=== PATIENT | female | born 1950 | race Caucasian/White ===

== ENCOUNTER → 2017-09-03 | Outpatient (CLI) | payer MEDICARE ==
--- NOTE | 2017-09-03 15:44 | RADIOLOGY REPORT (SQ) ---
EXAM DESCRIPTION: CHEST PA/LATERAL COMPLETED DATE/TIME: 09/03/2017 3:36 pm REASON FOR STUDY: DYSPNEA, UNSPECIFIED COMPARISON: 03/31/2016 EXAM PARAMETERS: NUMBER OF VIEWS: two views TECHNIQUE: Digital Frontal and Lateral radiographic views of the chest acquired. RADIATION DOSE: NA LIMITATIONS: none FINDINGS: LUNGS AND PLEURA: No opacities, masses or pneumothorax. No pleural effusion. MEDIASTINUM AND HILAR STRUCTURES: No masses or contour abnormalities. HEART AND VASCULAR STRUCTURES: Heart normal size. No evidence for failure. BONES: No acute findings. HARDWARE: None in the chest. OTHER: No other significant finding. IMPRESSION: NO SIGNIFICANT RADIOGRAPHIC FINDING IN THE CHEST. TECHNICAL DOCUMENTATION: JOB ID: [id number] [employer]- All Rights Reserved
== END ==
LOC: OD 15:22
PROVIDERS: ATTEND Physician Assistant
DX: R06.00 Dyspnea, unspecified (principal)
CPT/HCPCS: 71020

== ENCOUNTER 2018-10-23 13:34 | Emergency (ER) | payer MEDICAID, MEDICARE ==
--- NOTE | 2018-10-23 14:59 | ER Document Report ---
ED Medical Screen (RME) - General Chief Complaint: Leg Swelling Stated Complaint: LEG PAIN Time Seen by Provider: 10/23/18 14:57 Mode of Arrival: Wheelchair Information source: Patient Notes: This is a 68-year-old female that was referred to the emergency room for bilateral lower extremity Dopplers. Patient complains of increased swelling and pain in both lower extremities. She seems to have more pain on the left. She notes increased difficulty ambulating over the past several days. She denies any back pain. She denies any chest pain or abdominal pain. She denies any recent illnesses. TRAVEL OUTSIDE OF THE [place] IN LAST 30 DAYS: No - Related Data Allergies/Adverse Reactions: decongestants Allergy (Uncoded 10/23/18 13:49) steroids Allergy (Uncoded 10/23/18 13:49) DECONGESTANTS Adverse Reaction (Uncoded 10/23/18 13:49) INCREASES BP STEROIDS Adverse Reaction (Uncoded 10/23/18 13:49) INDUCES FEVER Past Medical History - Social History Frequency of alcohol use: None Drug Abuse: None - Past Medical History Cardiac Medical History: Reports: Hx Hypercholesterolemia, Hx Hypertension Denies: Hx Coronary Artery Disease, Hx Heart Attack Pulmonary Medical History: Reports: Hx Bronchitis Denies: Hx Asthma, Hx COPD, Hx Pneumonia Neurological Medical History: Reports: Hx Cerebrovascular Accident. 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 Denies: Hx Hepatitis, Hx Hiatal Hernia, Hx Ulcer Musculoskeltal Medical History: Reports Hx Arthritis - Legs, hips, hands Psychiatric Medical History: Reports: Hx Anxiety, Hx Dementia, Hx Depression, Hx Obsessive Compulsive Disorder Infectious Medical History: Denies: Hx Hepatitis Past Surgical History: Reports: Hx Dilation and Curettage - x2, Hx Gynecologic Surgery - D&C x2, Hx Orthopedic Surgery - 2x left foot, Hx Tonsillectomy. Denies: Hx Hysterectomy, Hx Mastectomy, Hx Open Heart Surgery, Hx Pacemaker - Immunizations Hx Diphtheria, Pertussis, Tetanus Vaccination: Yes Physical Exam - Vital signs Vitals: Temp Pulse Resp BP Pulse Ox 98.3 F 73 20 186/78 H 100 10/23/18 14:08 10/23/18 14:08 10/23/18 14:08 10/23/18 14:08 10/23/18 14:08 Course - Vital Signs Vital signs: Temp Pulse Resp BP Pulse Ox 98.3 F 73 20 186/78 H 100 10/23/18 14:08 10/23/18 14:08 10/23/18 14:08 10/23/18 14:08 10/23/18 14:08 Doctor's Discharge - Discharge Referrals: MO ROBERTS PA-C [Primary Care Provider] - Follow up as needed
[2018-10-23 15:34] LABS: ABSOLUTE LYMPHOCYTES (AUTO) 1.4 10^3/uL (0.5-4.7); ABSOLUTE MONOCYTES (AUTO) 0.6 10^3/uL (0.1-1.4); BASOPHILS % (AUTO) 0.4 % (0-2); EOSINOPHILS % (AUTO) 0.5 % (0-6); HEMATOCRIT 35.7 % (36.0-47.0); HEMOGLOBIN 12.2 g/dL (12.0-15.5); LYMPHOCYTES % (AUTO) 15.1 % (13-45); MEAN CORPUSCULAR HEMOGLOBIN 30.5 pg (27.0-33.4); MEAN CORPUSCULAR HGB CONC 34.1 g/dL (32.0-36.0); MEAN CORPUSCULAR VOLUME 89 fl (80-97); MONOCYTES % (AUTO) 6.1 % (3-13); PLATELET COUNT 222 10^3/uL (150-450); RED CELL DISTRIBUTION WIDTH 14.3 % (11.5-14.0); SEGMENTED NEUTROPHILS % (AUTO) 77.9 % (42-78); TOTAL CELLS COUNTED % (AUTO) 100 %
[2018-10-23 15:49] LABS: ALANINE AMINOTRANSFERASE 25 U/L (9-52); ALBUMIN 4.8 g/dL (3.5-5.0); ALKALINE PHOSPHATASE 161 U/L (38-126); ANION GAP 12 (5-19); ASPARTATE AMINO TRANSFERASE 19 U/L (14-36); BILIRUBIN,DIRECT 0.1 mg/dL (0.0-0.4); BILIRUBIN,TOTAL 0.5 mg/dL (0.2-1.3); BLOOD UREA NITROGEN 9 mg/dL (7-20); CALCIUM 9.3 mg/dL (8.4-10.2); CARBON DIOXIDE 31 mmol/L (22-30); CHLORIDE 89 mmol/L (98-107); GLUCOSE 144 mg/dL (75-110); SODIUM 132.1 mmol/L (137-145)
--- NOTE | 2018-10-23 16:02 | RADIOLOGY REPORT (SQ) ---
EXAM DESCRIPTION: TIBIA FIBULA LEFT COMPLETED DATE/TIME: 10/23/2018 3:41 pm REASON FOR STUDY: lle pain COMPARISON: None. NUMBER OF VIEWS: Two views. TECHNIQUE: Two radiographic images acquired of the left tibia and fibula to include the knee and ank le in at least one projection. LIMITATIONS: None. FINDINGS: MINERALIZATION: Normal. BONES: No acute fracture or dislocation. No worrisome bone lesions. No significant osteophytes. SOFT TISSUES: No obvious swelling or foreign body. OTHER: No other significant finding. IMPRESSION: NO SIGNIFICANT RADIOGRAPHIC ABNORMALITY. TECHNICAL DOCUMENTATION: JOB ID: [id number] [employer]- All Rights Reserved Reading location - IP/workstation name: [email or web address]
--- NOTE | 2018-10-23 19:01 | RADIOLOGY REPORT (SQ) ---
EXAM DESCRIPTION: VENOUS BILATERAL LOWER COMPLETED DATE/TIME: 10/23/2018 6:53 pm REASON FOR STUDY: lower extremity pain and swelling COMPARISON: None. TECHNIQUE: Dynamic and static quevedo scale and color images acquired of both lower extremity venous sy stems. Selected spectral images acquired with additional compression and augmentation maneuvers. Imag es stored on PACS. LIMITATIONS: None. FINDINGS: RIGHT LEG COMMON FEMORAL AND FEMORAL: Normal phasicity, compression and augmentation. No visualized echogenic m aterial on quevedo scale. No defects on color images. POPLITEAL: Normal compression and augmentation. No visualized echogenic material on quevedo scale. No de fects on color images. CALF VESSELS: Normal compression and augmentation. No visualized echogenic material on quevedo scale. No defects on color image. GSV AND SSV: Normal compression. No visualized echogenic material on quevedo scale. No defects on color images. ANY DEEP VENOUS INSUFFICIENCY: Not evaluated. ANY EVIDENCE OF POPLITEAL CYST: No. OTHER: No other significant finding. LEFT LEG COMMON FEMORAL AND FEMORAL: Normal phasicity, compression and augmentation. No visualized echogenic m aterial on quevedo scale. No defects on color images. POPLITEAL: Normal compression and augmentation. No visualized echogenic material on quevedo scale. No de fects on color images. CALF VESSELS: Normal compression and augmentation. No visualized echogenic material on quevedo scale. No defects on color images. GSV AND SSV: Normal compression. No visualized echogenic material on quevedo scale. No defects on color images. ANY DEEP VENOUS INSUFFICIENCY: Not evaluated. ANY EVIDENCE POPLITEAL CYST: No. OTHER: No other significant finding. IMPRESSION: NO EVIDENCE DVT OR SVT IN EITHER LEG. TECHNICAL DOCUMENTATION: JOB ID: [id number] [employer]- All Rights Reserved Reading location - IP/workstation name: [email or web address]
--- NOTE | 2018-10-23 20:14 | ER Document Report ---
ED General - General Chief Complaint: Leg Swelling Stated Complaint: LEG PAIN Time Seen by Provider: 10/23/18 14:57 Mode of Arrival: Wheelchair Notes: Patient is a 68-year-old female with a past medical history of congestive heart failure, hypertension, hyperlipidemia, presents with 4-5 days of progressively worsening bilateral lower extremity edema, pain is present in both legs but much worse than her left. Describes the pain in her left leg as being from the level of her knee down to her ankle. Pain is described as a throbbing, aching, constant pain. Worsened by attempts at ambulation or movement of the leg. Denies a history of similar symptoms in the past. She states that she was started on furosemide yesterday by her primary care doctor, referred to the emergency department today for rule out of DVT. She has no previous history of DVT. Denies fever or constitutional symptoms. No chest pain or shortness of breath. TRAVEL OUTSIDE OF THE [place] IN LAST 30 DAYS: No - Related Data Allergies/Adverse Reactions: decongestants Allergy (Uncoded 10/23/18 13:49) steroids Allergy (Uncoded 10/23/18 13:49) DECONGESTANTS Adverse Reaction (Uncoded 10/23/18 13:49) INCREASES BP STEROIDS Adverse Reaction (Uncoded 10/23/18 13:49) INDUCES FEVER Past Medical History - General Information source: Patient - Social History Smoking Status: Never Smoker Frequency of alcohol use: None Drug Abuse: None Lives with: Family Family History: CAD Patient has suicidal ideation: No Patient has homicidal ideation: No - Past Medical History Cardiac Medical History: Reports: Hx Hypercholesterolemia, Hx Hypertension Denies: Hx Coronary Artery Disease, Hx Heart Attack Pulmonary Medical History: Reports: Hx Bronchitis Denies: Hx Asthma, Hx COPD, Hx Pneumonia Neurological Medical History: Reports: Hx Cerebrovascular Accident. 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 Denies: Hx Hepatitis, Hx Hiatal Hernia, Hx Ulcer Musculoskeletal Medical History: Reports Hx Arthritis - Legs, hips, hands Psychiatric Medical History: Reports: Hx Anxiety, Hx Dementia, Hx Depression, Hx Obsessive Compulsive Disorder Infectious Medical History: Denies: Hx Hepatitis Past Surgical History: Reports: Hx Dilation and Curettage - x2, Hx Gynecologic Surgery - D&C x2, Hx Orthopedic Surgery - 2x left foot, Hx Tonsillectomy. Denies: Hx Hysterectomy, Hx Mastectomy, Hx Open Heart Surgery, Hx Pacemaker - Immunizations Hx Diphtheria, Pertussis, Tetanus Vaccination: Yes Review of Systems - Review of Systems Notes: Constitutional: Negative for fever. HENT: Negative for sore throat. Eyes: Negative for visual changes. Cardiovascular: Negative for chest pain. Respiratory: Negative for shortness of breath. Gastrointestinal: Negative for abdominal pain, vomiting or diarrhea. Genitourinary: Negative for dysuria. Musculoskeletal: Positive bilateral lower extremity pain Skin: Positive for edema to the bilateral lower extremities Neurological: Negative for headaches, weakness or numbness. 10 point ROS negative except as marked above and in HPI. Physical Exam - Vital signs Vitals: Temp Pulse Resp BP Pulse Ox 98.3 F 73 20 186/78 H 100 10/23/18 14:08 10/23/18 14:08 10/23/18 14:08 10/23/18 14:08 10/23/18 14:08 Interpretation: Hypertensive Notes: PHYSICAL EXAMINATION: GENERAL: Well-appearing, well-nourished and in no acute distress. HEAD: Atraumatic, normocephalic. EYES: Pupils equal round and reactive to light, extraocular movements intact, sclera anicteric, conjunctiva are normal. ENT: nares patent, oropharynx clear without exudates. Moist mucous membranes. NECK: Normal range of motion, supple without lymphadenopathy LUNGS: Breath sounds clear to auscultation bilaterally and equal. No wheezes rales or rhonchi. HEART: Regular rate and rhythm without murmurs ABDOMEN: Soft, nontender, normoactive bowel sounds. No guarding, no rebound. No masses appreciated. EXTREMITIES: Normal range of motion, 2+ pitting edema in the bilateral lower extremities that is equal and symmetric NEUROLOGICAL: No focal neurological deficits. Moves all extremities spontaneously and on command. PSYCH: Normal mood, normal affect. SKIN: Warm, Dry, normal turgor, changes consistent with chronic venous stasis in the bilateral lower extremities Course - Re-evaluation Re-evalutation: 10/23/18 20:12 Patient presents with bilateral lower extremity edema, signs of chronic venous stasis, pain worse on the left and edema is somewhat worse on exam on the left lower extremity. Patient has tight 4+ pitting edema bilaterally somewhat worse on the left above the level of the knee and down. The patient was started on furosemide yesterday by her primary care doctor presents given ongoing nature of her pain. Venous Doppler study without any evidence of acute DVT. Left tib-fib x-ray unremarkable. Labs otherwise unremarkable. Patient is otherwise well in appearance, no additional complaints beyond bilateral lower extreme knee pain and swelling. Patient has been started on compression stockings in addition to the furosemide which she already takes. I have advised her that she needs to wear these at least 12 hours daily and continue to take the furosemide as prescribed by her primary care doctor. At this time will discharge with return precautions and follow-up recommendations. Verbal discharge instructions given a the bedside and opportunity for questions given. Medication warnings reviewed. Patient is in agreement with this plan and has verbalized understanding of return precautions and the need for primary care follow-up in the next 24-72 hours. - Vital Signs Vital signs: Temp Pulse Resp BP Pulse Ox 98.3 F 73 19 178/79 H 97 10/23/18 14:08 10/23/18 14:08 10/23/18 20:01 10/23/18 20:01 10/23/18 20:01 - Laboratory Result Diagrams: 10/23/18 15:00 10/23/18 15:00 Laboratory results interpreted by me: 10/23/18 10/23/18 10/23/18 15:00 15:00 15:00 Hct 35.7 L RDW 14.3 H Sodium 132.1 L Chloride 89 L Carbon Dioxide 31 H Glucose 144 H Alkaline Phosphatase 161 H NT-Pro-B Natriuret Pep 1750 H - Diagnostic Test Radiology reviewed: Image reviewed, Reports reviewed Radiology results interpreted by me: 10/23/18 20:12 Left tib-fib x-ray: No acute fracture or dislocation Discharge - Discharge Clinical Impression: Bilateral lower extremity edema, Venous stasis, Bilateral lower extremity pain Condition: Good Disposition: HOME, SELF-CARE Additional Instructions: Please wear compression stockings on both your legs throughout the day to help reduce the swelling in your legs. Take the furosemide that has been prescribed by her primary doctor as directed. Your ultrasound does not show any evidence of a blood clot in your leg. The x-ray of your left leg is also normal. Return if you develop worsening pain on one side, fever greater than 101F, vomiting, weakness, numbness or any other symptoms that are concerning to you. Referrals: MO ROBERTS PA-C [NURSE PRACTITIONER] - Follow up in 3-5 days
[2018-10-23 20:21] VITALS: BP 178/79
== END 2018-10-23 21:10 | disposition home or self-care (01) ==
LOC: ER 13:34
DX: I11.0 Hypertensive heart disease with heart failure (principal); I50.9 Heart failure, unspecified; I87.8 Other specified disorders of veins; R60.0 Localized edema; M25.562 Pain in left knee; M25.561 Pain in right knee; M79.662 Pain in left lower leg; M79.661 Pain in right lower leg; Z88.8 Allergy status to other drugs, medicaments and biological substances; Z85.828 Personal history of other malignant neoplasm of skin
CPT/HCPCS: 36415; 80053; 83880; 85025; 93970; 99284

== ENCOUNTER 2019-02-28 14:11 | Emergency (ER) | payer MEDICARE, MEDICAID ==
[2019-02-28] MEDS ORDERED: DIAZEPAM INJ 10 MG/2 ML DISP.SYRIN IV ONE (14:56)
[2019-02-28] MEDS ORDERED: KETOROLAC TROMETHAMINE INJ/PF 30 MG/1 ML SDV IV ONE (14:57)
[2019-02-28] MEDS ORDERED: LIDOCAINE 5% (700 MG) TRANSDERMAL ADH..PATCH TP ONE ×2 (14:57→20:45)
--- NOTE | 2019-02-28 14:58 | ER Document Report ---
ED Medical Screen (RME) - General Chief Complaint: Back Pain Stated Complaint: BACK PAIN Time Seen by Provider: 02/28/19 14:50 Primary Care Provider: NICOLE ARAUJO MD [Primary Care Provider] - Follow up as needed TRAVEL OUTSIDE OF THE [place] IN LAST 30 DAYS: No - HPI Notes: 02/28/19 14:57 Patient is a 68-year-old female with a history of chronic back pain, hypertension, ambulatory dysfunction who presents to the emergency department complaining of severe back spasming that started this morning. Patient states that this is the worst spasm that she has had in her back with her chronic pain. Patient states that Flexeril has not been helping. Movement makes the pain worse. Patient states that the pain will radiate to her hips bilaterally. Patient also states that she is having mid to lower abdominal pain that began prior to arrival with intermittent nausea. Denies OZUNA, fever, neck pain, URI, CP, SOB, v/d, dysuria, saddle anesthesia, muscle paralysis/weakness, or rash. I have treated and performed a rapid initial assessment of this patient. A comprehensive ED assessment and evaluation of the patient, analysis of test results and completion of medical decision making process will be conducted by additional ED providers. PHYSICAL EXAMINATION: GENERAL: No acute respiratory distress. Alert and oriented x4. Answers questions appropriately. Patient is sitting in a wheelchair and is having difficulty moving which makes my exam limited me as I do not have a table. LUNGS: Breath sounds clear to auscultation bilaterally and equal. No wheezes rales or rhonchi. HEART: Regular rate and rhythm without murmurs, rubs, gallops. ABDOMEN: Soft, nondistended abdomen. No guarding, no rebound. Normal bowel sounds present. No CVA tenderness bilaterally. + mild mid abdominal tenderness (cannot elicit thorough abd exam w/o table, however). Back: + kyphosis. LROM. + tenderness L-paraspinals, but difficult to assess in WC. no foot drop. SLR neg. - Related Data Allergies/Adverse Reactions: decongestants Allergy (Uncoded 02/28/19 14:12) steroids Allergy (Uncoded 02/28/19 14:12) DECONGESTANTS Adverse Reaction (Uncoded 02/28/19 14:12) INCREASES BP STEROIDS Adverse Reaction (Uncoded 02/28/19 14:12) INDUCES FEVER Past Medical History - Social History Chew tobacco use (# tins/day): No Frequency of alcohol use: None Drug Abuse: None - Past Medical History Cardiac Medical History: Reports: Hx Hypercholesterolemia, Hx Hypertension Denies: Hx Coronary Artery Disease, Hx Heart Attack Pulmonary Medical History: Reports: Hx Bronchitis Denies: Hx Asthma, Hx COPD, Hx Pneumonia Neurological Medical History: Reports: Hx Cerebrovascular Accident. 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 Denies: Hx Hepatitis, Hx Hiatal Hernia, Hx Ulcer Musculoskeltal Medical History: Reports Hx Arthritis - Legs, hips, hands Psychiatric Medical History: Reports: Hx Anxiety, Hx Dementia, Hx Depression, Hx Obsessive Compulsive Disorder Infectious Medical History: Denies: Hx Hepatitis Past Surgical History: Reports: Hx Dilation and Curettage - x2, Hx Gynecologic Surgery - D&C x2, Hx Orthopedic Surgery - 2x left foot, Hx Tonsillectomy. Denies: Hx Hysterectomy, Hx Mastectomy, Hx Open Heart Surgery, Hx Pacemaker - Immunizations Hx Diphtheria, Pertussis, Tetanus Vaccination: Yes Physical Exam - Vital signs Vitals: Temp Pulse Resp BP Pulse Ox 98 F 86 16 145/84 H 94 02/28/19 14:16 02/28/19 14:16 02/28/19 14:16 02/28/19 14:16 02/28/19 14:16 Course - Vital Signs Vital signs: Temp Pulse Resp BP Pulse Ox 98 F 86 16 145/84 H 94 02/28/19 14:16 02/28/19 14:16 02/28/19 14:16 02/28/19 14:16 02/28/19 14:16 Doctor's Discharge - Discharge Referrals: NICOLE ARAUJO MD [Primary Care Provider] - Follow up as needed
[2019-02-28 16:04] LABS: ABSOLUTE BASOPHILS # (AUTO) 0.1 10^3/uL (0.0-0.2); ABSOLUTE EOSINOPHILS # (AUTO) 0.1 10^3/uL (0.0-0.6); ABSOLUTE LYMPHOCYTES (AUTO) 1.1 10^3/uL (0.5-4.7); ABSOLUTE MONOCYTES (AUTO) 0.9 10^3/uL (0.1-1.4); ABSOLUTE NEUT (AUTO) 8.4 10^3/uL (1.7-8.2); BASOPHILS % (AUTO) 0.6 % (0-2); EOSINOPHILS % (AUTO) 0.5 % (0-6); HEMATOCRIT 35.3 % (36.0-47.0); HEMOGLOBIN 11.6 g/dL (12.0-15.5); LYMPHOCYTES % (AUTO) 10.7 % (13-45); MEAN CORPUSCULAR HEMOGLOBIN 29.1 pg (27.0-33.4); MEAN CORPUSCULAR HGB CONC 32.9 g/dL (32.0-36.0); MEAN CORPUSCULAR VOLUME 89 fl (80-97); MONOCYTES % (AUTO) 8.5 % (3-13); PLATELET COUNT 313 10^3/uL (150-450); RED BLOOD COUNT 3.99 10^6/uL (3.72-5.28); RED CELL DISTRIBUTION WIDTH 14.7 % (11.5-14.0); SEGMENTED NEUTROPHILS % (AUTO) 79.7 % (42-78); TOTAL CELLS COUNTED % (AUTO) 100 %; WHITE BLOOD COUNT 10.5 10^3/uL (4.0-10.5)
[2019-02-28 16:21] LABS: ALANINE AMINOTRANSFERASE 17 U/L (9-52); ALBUMIN 4.1 g/dL (3.5-5.0); ALKALINE PHOSPHATASE 138 U/L (38-126); ANION GAP 15 (5-19); ASPARTATE AMINO TRANSFERASE 22 U/L (14-36); BILIRUBIN,DIRECT 0.3 mg/dL (0.0-0.4); BILIRUBIN,TOTAL 0.6 mg/dL (0.2-1.3); BLOOD UREA NITROGEN 10 mg/dL (7-20); CALCIUM 9.2 mg/dL (8.4-10.2); CARBON DIOXIDE 30 mmol/L (22-30); CHLORIDE 91 mmol/L (98-107); GLUCOSE 107 mg/dL (75-110); LIPASE 49.7 U/L (23-300); POTASSIUM 4.1 mmol/L (3.6-5.0); SODIUM 135.5 mmol/L (137-145); TOTAL PROTEIN 7.5 g/dL (6.3-8.2)
[2019-02-28 18:46] LABS: APPEARANCE,URINE CLEAR; BILIRUBIN,URINE NEGATIVE (NEGATIVE); COLOR,URINE STRAW; GLUCOSE, URINE NEGATIVE (NEGATIVE); KETONES,URINE NEGATIVE (NEGATIVE); LEUKOCYTE ESTERASE,URINE NEGATIVE (NEGATIVE); NITRITE,URINE NEGATIVE (NEGATIVE); PROTEIN,URINE NEGATIVE (NEGATIVE); URINE SPECIFIC GRAVITY 1.003; UROBILINOGEN,URINE NEGATIVE mg/dL (<2.0)
--- NOTE | 2019-02-28 20:28 | ER Document Report ---
ED General - General Chief Complaint: Back Pain Stated Complaint: BACK PAIN Time Seen by Provider: 02/28/19 14:50 Primary Care Provider: NICOLE ARAUJO MD [Primary Care Provider] - Follow up in 3-5 days Notes: Patient is a 68-year-old female with a past medical history of chronic low back pain, currently in pain management who presents with acute on chronic low back pain. Patient states that she has been having worsening, spasming pain to her low back. States that this is been long-term for several years, has been worse for the past 3 to 4 months. States that she came to the emergency department today because she had a much more intense spasm than usual but that her pain is currently at its baseline. Denies bowel or bladder incontinence, urinary retention, focal weakness or numbness. No falls or new injuries. Has not contacted her pain management doctor her primary care doctor regarding these concerns today. TRAVEL OUTSIDE OF THE [place] IN LAST 30 DAYS: No - HPI Patient complains to provider of: Low back pain, back spasms Onset: Other - 3 to 4 months Onset/Duration: Constant, Persistent Quality of pain: Stabbing, Throbbing Severity: Severe Pain Level: 5 Associated symptoms: None Exacerbated by: Movement, Walking Relieved by: Denies Similar symptoms previously: Yes Recently seen / treated by doctor: Yes - Related Data Allergies/Adverse Reactions: decongestants Allergy (Uncoded 02/28/19 14:12) steroids Allergy (Uncoded 02/28/19 14:12) DECONGESTANTS Adverse Reaction (Uncoded 02/28/19 14:12) INCREASES BP STEROIDS Adverse Reaction (Uncoded 02/28/19 14:12) INDUCES FEVER Past Medical History - General Information source: Patient - Social History Smoking Status: Never Smoker Chew tobacco use (# tins/day): No Frequency of alcohol use: None Drug Abuse: None Lives with: Family Family History: CAD Patient has suicidal ideation: No Patient has homicidal ideation: No - Past Medical History Cardiac Medical History: Reports: Hx Hypercholesterolemia, Hx Hypertension Denies: Hx Coronary Artery Disease, Hx Heart Attack Pulmonary Medical History: Reports: Hx Bronchitis Denies: Hx Asthma, Hx COPD, Hx Pneumonia Neurological Medical History: Reports: Hx Cerebrovascular Accident. 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 Denies: Hx Hepatitis, Hx Hiatal Hernia, Hx Ulcer Musculoskeletal Medical History: Reports Hx Arthritis - Legs, hips, hands Psychiatric Medical History: Reports: Hx Anxiety, Hx Dementia, Hx Depression, Hx Obsessive Compulsive Disorder Infectious Medical History: Denies: Hx Hepatitis Past Surgical History: Reports: Hx Dilation and Curettage - x2, Hx Gynecologic Surgery - D&C x2, Hx Orthopedic Surgery - 2x left foot, Hx Tonsillectomy. Denies: Hx Hysterectomy, Hx Mastectomy, Hx Open Heart Surgery, Hx Pacemaker - Immunizations Hx Diphtheria, Pertussis, Tetanus Vaccination: Yes Review of Systems - Review of Systems Notes: Constitutional: Negative for fever. HENT: Negative for sore throat. Eyes: Negative for visual changes. Cardiovascular: Negative for chest pain. Respiratory: Negative for shortness of breath. Gastrointestinal: Negative for abdominal pain, vomiting or diarrhea. Genitourinary: Negative for dysuria. Musculoskeletal: Positive for low back pain Skin: Negative for rash. Neurological: Negative for headaches, weakness or numbness. 10 point ROS negative except as marked above and in HPI. Physical Exam - Vital signs Vitals: Temp Pulse Resp BP Pulse Ox 98 F 86 16 145/84 H 94 02/28/19 14:16 02/28/19 14:16 02/28/19 14:16 02/28/19 14:16 02/28/19 14:16 Interpretation: Hypertensive Notes: PHYSICAL EXAMINATION: GENERAL: Well-appearing, well-nourished and in no acute distress. HEAD: Atraumatic, normocephalic. EYES: Pupils equal round and reactive to light, extraocular movements intact, sclera anicteric, conjunctiva are normal. ENT: nares patent, oropharynx clear without exudates. Moist mucous membranes. NECK: Normal range of motion, supple without lymphadenopathy LUNGS: Breath sounds clear to auscultation bilaterally and equal. No wheezes rales or rhonchi. HEART: Regular rate and rhythm without murmurs ABDOMEN: Soft, nontender, normoactive bowel sounds. No guarding, no rebound. No masses appreciated. EXTREMITIES: Normal range of motion, no pitting or edema. No cyanosis. Back: No midline spinal tenderness, step-offs or deformities. NEUROLOGICAL: 5 out of 5 strength both distally and proximally bilateral lower extremities. 2+ patellar reflexes bilaterally. No clonus. Sensation grossly intact in the bilateral lower extremities. Patient is able to ambulate without difficulty. PSYCH: Normal mood, normal affect. SKIN: Warm, Dry, normal turgor, no rashes or lesions noted. Course - Re-evaluation Re-evalutation: 02/28/19 20:27 Presentation of a well appearing patient complaining of acute on chronic back pain. Patient states that she has long-standing chronic low back pain and that the pain is not new or different today. She states that the pain has been much more intense for at least the past 3 to 4 months and that she is in pain management for this pain but that Flexeril and hydrocodone are not controlling her pain. No rapid progression of symptoms, systemic symptoms including fevers, chills, weight loss, history of recent bacterial infection, bilateral symptoms, numbness, weakness, difficulty walking, urinary retention or bowel incontinence, personal history of cancer, immunosuppression, diabetes, known AAA, or history of IV drug use. Exam is without point tenderness over vertebral bodies, pul satile abdominal mass, and patient has symmetric and intact lower extremity strength, sensation, and reflexes without clonus. 2+ symmetric medial malleolar and dorsalis pedis pulses. Based on history and physical, I have a very low suspicion of a concerning etiology of pain including epidural compression syndrome, spinal infection, transverse myelitis, malignancy, abdominal aortic aneurysm, renal colic, acute lower extremity claudication, neurogenic claudication, ankylosing spondylitis, or other intra-abdominal process. Due to absence of concerning risk factors in history and physical as well as absence of rapidly progressive, severe, or bilateral symptoms, will defer imaging at this point. At this time will discharge with return precautions and follow-up recommendations. Verbal discharge instructions given a the bedside and opportunity for questions given. Medication warnings reviewed. Patient is in agreement with this plan and has verbalized understanding of return precautions and the need for primary care follow-up in the next 24-72 hours. 03/01/19 03:49 - Vital Signs Vital signs: Temp Pulse Resp BP Pulse Ox 98.1 F 81 16 177/73 H 100 02/28/19 21:17 02/28/19 21:17 02/28/19 21:17 02/28/19 21:17 02/28/19 21:17 - Laboratory Result Diagrams: 02/28/19 15:52 02/28/19 15:52 Laboratory results interpreted by me: 02/28/19 02/28/19 15:52 15:52 Hgb 11.6 L Hct 35.3 L RDW 14.7 H Seg Neutrophils % 79.7 H Lymphocytes % 10.7 L Absolute Neutrophils 8.4 H Sodium 135.5 L Chloride 91 L Alkaline Phosphatase 138 H Discharge - Discharge Clinical Impression: Chronic low back pain Qualifiers: Back pain laterality: bilateral Sciatica presence: without sciatica Qualified Code(s): M54.5 - Low back pain Condition: Good Disposition: HOME, SELF-CARE Additional Instructions: You have been seen in the Emergency Department (ED) today for back pain. Your workup and exam have not shown any acute abnormalities and you are likely suffering from muscle strain or possible problems with your discs, but there is no treatment that will fix your symptoms at this time. Continue taking your medications as prescribed with the exception of Flexeril which you need to discontinue. Start methocarbamol as prescribed. You should also purchase a local lidocaine cream such as "aspercreme with lidocaine" and use per bottle instructions to the affected area. Apply heat to the area as often as you are able. Continue to keep active and avoid prolonged periods of bed rest. Please follow up with your doctor as soon as possible regarding today's ED visit and your back pain. Return to the ED for worsening back pain, fever, weakness or numbness of either leg, or if you develop either (1) an inability to urinate or have bowel movements, or (2) loss of your ability to control your bathroom functions (if you start having "accidents"), or if you develop other new symptoms that concern you.concern you. Prescriptions: Methocarbamol [Robaxin 500 mg Tablet] 500 mg PO BID #60 tablet Referrals: NICOLE ARAUJO MD [Primary Care Provider] - Follow up in 3-5 days
[2019-02-28 21:18] VITALS: BP 177/73
== END 2019-03-01 03:55 | disposition home or self-care (01) ==
LOC: ER 14:11
DX: G89.29 Other chronic pain (principal); M54.5 Low back pain; E78.00 Pure hypercholesterolemia, unspecified; I10 Essential (primary) hypertension; K21.9 Gastro-esophageal reflux disease without esophagitis
CPT/HCPCS: 99283; 96374; 96375; 36415; 83690; 85025; 80053; 81001; J3360; J1885

== ENCOUNTER 2019-03-05 14:15 | Emergency (ER) | payer MEDICAID, MEDICARE ==
[2019-03-05] MEDS ORDERED: LIDOCAINE 5% (700 MG) TRANSDERMAL ADH..PATCH TP ONE ×2 (16:26→20:15)
[2019-03-05] MEDS ORDERED: KETOROLAC TROMETHAMINE 60 MG/2 ML SDV IM ONE ×2 (16:26→20:15)
--- NOTE | 2019-03-05 16:28 | ER Document Report ---
ED Medical Screen (RME) - General Chief Complaint: Back Pain Stated Complaint: BACK PAIN Time Seen by Provider: 03/05/19 16:13 Primary Care Provider: NICOLE ARAUJO MD [Primary Care Provider] - Follow up as needed TRAVEL OUTSIDE OF THE [place] IN LAST 30 DAYS: No - HPI Notes: 03/05/19 16:26 Patient is a 68-year-old female with a history of chronic back pain, hypertension, ambulatory dysfunction who presents to the emergency department complaining of severe back spasming that started again today. Patient states that she flared up her back again today. She has had recurrent spasming recently. Patient was evaluated the other day and was sent home with Jacky. Movement makes the pain worse. Patient states that the pain will radiate to her hips bilaterally. Denies OZUNA, fever, neck pain, URI, CP, SOB, v/d, dysuria, saddle anesthesia, muscle paralysis/weakness, or rash. I have treated and performed a rapid initial assessment of this patient. A comprehensive ED assessment and evaluation of the patient, analysis of test results and completion of medical decision making process will be conducted by additional ED providers. PHYSICAL EXAMINATION: GENERAL: No acute respiratory distress. Alert and oriented x4. Answers questions appropriately. Patient is sitting in a wheelchair and is having difficulty moving which makes my exam limited me as I do not have a table. LUNGS: Breath sounds clear to auscultation bilaterally and equal. No wheezes rales or rhonchi. HEART: Regular rate and rhythm without murmurs, rubs, gallops. ABDOMEN: Soft, nondistended abdomen. No guarding, no rebound. Normal bowel sounds present. No CVA tenderness bilaterally. + mild mid abdominal tenderness (cannot elicit thorough abd exam w/o table, however). Back: + kyphosis. LROM. + tenderness L-paraspinals, but difficult to assess in WC. no foot drop. SLR neg. Patient will need further evaluation once she is out of the wheelchair. - Related Data Allergies/Adverse Reactions: decongestants Allergy (Uncoded 03/05/19 14:19) steroids Allergy (Uncoded 03/05/19 14:19) DECONGESTANTS Adverse Reaction (Uncoded 03/05/19 14:19) INCREASES BP STEROIDS Adverse Reaction (Uncoded 03/05/19 14:19) INDUCES FEVER Past Medical History - Social History Chew tobacco use (# tins/day): No Frequency of alcohol use: None Drug Abuse: None - Past Medical History Cardiac Medical History: Reports: Hx Hypercholesterolemia, Hx Hypertension Denies: Hx Coronary Artery Disease, Hx Heart Attack Pulmonary Medical History: Reports: Hx Bronchitis Denies: Hx Asthma, Hx COPD, Hx Pneumonia Neurological Medical History: Reports: Hx Cerebrovascular Accident. 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 Denies: Hx Hepatitis, Hx Hiatal Hernia, Hx Ulcer Musculoskeltal Medical History: Reports Hx Arthritis - Legs, hips, hands Psychiatric Medical History: Reports: Hx Anxiety, Hx Dementia, Hx Depression, Hx Obsessive Compulsive Disorder Infectious Medical History: Denies: Hx Hepatitis Past Surgical History: Reports: Hx Dilation and Curettage - x2, Hx Gynecologic Surgery - D&C x2, Hx Orthopedic Surgery - 2x left foot, Hx Tonsillectomy. Denies: Hx Hysterectomy, Hx Mastectomy, Hx Open Heart Surgery, Hx Pacemaker - Immunizations Hx Diphtheria, Pertussis, Tetanus Vaccination: Yes Physical Exam - Vital signs Vitals: Temp Pulse Resp BP Pulse Ox 98.2 F 77 16 161/77 H 96 03/05/19 15:44 03/05/19 15:44 03/05/19 15:44 03/05/19 15:44 03/05/19 15:44 Course - Vital Signs Vital signs: Temp Pulse Resp BP Pulse Ox 98.2 F 77 16 161/77 H 96 03/05/19 15:44 03/05/19 15:44 03/05/19 15:44 03/05/19 15:44 03/05/19 15:44 Doctor's Discharge - Discharge Referrals: NICOLE ARAUJO MD [Primary Care Provider] - Follow up as needed
[2019-03-05] MEDS ORDERED: DIAZEPAM 5 MG TABLET PO ONE (20:10)
--- NOTE | 2019-03-05 20:15 | ER Document Report ---
Addendum entered and electronically signed by EVE HARDY PA-C 03/05/19 22:34: Discharge - Discharge Clinical Impression: Muscle spasm Chronic pain Qualifiers: Chronic pain type: chronic pain syndrome Qualified Code(s): G89.4 - Chronic pain syndrome Condition: Good Disposition: HOME, SELF-CARE Instructions: Ice Packs ([facility]), Muscle Strain ([facility]), Myalagia (Muscle Pain) ([facility]) Prescriptions: Diazepam [Valium] 2 mg PO TIDP PRN #9 tablet PRN Reason: Referrals: NICOLE ARAUJO MD [Primary Care Provider] - Follow up as needed Original Note: ED General - General Chief Complaint: Back Pain Stated Complaint: BACK PAIN Time Seen by Provider: 03/05/19 16:13 Primary Care Provider: NICOLE ARAUJO MD [Primary Care Provider] - Follow up as needed Mode of Arrival: Medic Information source: Patient TRAVEL OUTSIDE OF THE [place] IN LAST 30 DAYS: No - HPI Patient complains to provider of: Muscular spasms and hip pain Onset: Other - Chronic Onset/Duration: Constant, Worse Quality of pain: Sharp Severity: Severe Pain Level: 4 Associated symptoms: None Exacerbated by: Movement, Walking Relieved by: Denies Similar symptoms previously: No Recently seen / treated by doctor: No Notes: Patient is a 68-year-old female who arrives to us via ambulance with back pain and right hip pain. She'S having increased pain in her right hip and back than normal. The spasms are too much for her to handle. Denies bladder and bowel incontinence. Denies saddle anesthesia. - Related Data Allergies/Adverse Reactions: decongestants Allergy (Uncoded 03/05/19 14:19) steroids Allergy (Uncoded 03/05/19 14:19) DECONGESTANTS Adverse Reaction (Uncoded 03/05/19 14:19) INCREASES BP STEROIDS Adverse Reaction (Uncoded 03/05/19 14:19) INDUCES FEVER Past Medical History - General Information source: Patient - Social History Smoking Status: Unknown if Ever Smoked Chew tobacco use (# tins/day): No Frequency of alcohol use: None Drug Abuse: None Family History: Reviewed & Not Pertinent, CAD Patient has suicidal ideation: No Patient has homicidal ideation: No - Past Medical History Cardiac Medical History: Reports: Hx Hypercholesterolemia, Hx Hypertension Denies: Hx Coronary Artery Disease, Hx Heart Attack Pulmonary Medical History: Reports: Hx Bronchitis Denies: Hx Asthma, Hx COPD, Hx Pneumonia Neurological Medical History: Reports: Hx Cerebrovascular Accident. 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 Denies: Hx Hepatitis, Hx Hiatal Hernia, Hx Ulcer Musculoskeletal Medical History: Reports Hx Arthritis - Legs, hips, hands Psychiatric Medical History: Reports: Hx Anxiety, Hx Dementia, Hx Depression, Hx Obsessive Compulsive Disorder Infectious Medical History: Denies: Hx Hepatitis Past Surgical History: Reports: Hx Dilation and Curettage - x2, Hx Gynecologic Surgery - D&C x2, Hx Orthopedic Surgery - 2x left foot, Hx Tonsillectomy. Denies: Hx Hysterectomy, Hx Mastectomy, Hx Open Heart Surgery, Hx Pacemaker - Immunizations Hx Diphtheria, Pertussis, Tetanus Vaccination: Yes Review of Systems - Review of Systems Notes: Constitutional: No fevers. No chills. EENT: No eye redness. No eye pain. No ear pain. No sore throat. Cardiovascular: No chest pain. No palpitations. Respiratory: No cough. No shortness of breath. No respiratory distress. Gastrointestinal: No abdominal pain. No nausea, vomiting, or diarrhea. Genitourinary: Atraumatic. No lesions. No pain. No discharge. Musculoskeletal: Positive for back pain and right hip pain Skin: No rash or lesions. Lymphatic: No swollen lymph nodes. Neurologic: No headache. No syncope. Psychiatric: No suicidal or homicidal ideation. Physical Exam - Vital signs Vitals: Temp Pulse Resp BP Pulse Ox 98.2 F 77 16 161/77 H 96 03/05/19 15:44 03/05/19 15:44 03/05/19 15:44 03/05/19 15:44 03/05/19 15:44 - Notes Notes: General: Well-developed, well-nourished. In no acute distress. Non-toxic appearing. Appears older than stated age Cardiac: Well-perfused. Regular rate and rhythm. No murmurs, rubs, or gallops. Pulmonary: No respiratory distress. No cyanosis. Bilateral lung fiels are clear to auscultation. Abdominal: Non-distended. Non-rigid. Bowels sounds are present in all four quadrants. No guarding or rebound. HEENT: Head is atraumatic. Conjunctivae not reddened. No tearing. PERRL. EOMI. Orbits atraumatic. No periorbital swelling or erythema. Oropharynx is without erythema, swelling, or exudates. Neck: Supple. No adenopathy. No meningismus. Dermatologic: Warm with good turgor. No rash. Atraumatic. Chest: Atraumatic. No chest wall tenderness to palpation. Musculoskeletal: Diffuse parathoracic and paralumbar tenderness. No midline tenderness or step-off. Tenderness over the greater trochanter of the right hip. No shortening or rotation's. Distal neurovascular exam is intact Genitourinary: Examination deferred Neurologic: No gross neurologic deficits. Psychiatric: Normal mood. Course - Re-evaluation Re-evalutation: 03/05/19 20:15 Small dose of Valium as well as Toradol and Lidoderm patch ordered. 03/05/19 21:34 Patient was feeling better and pain medicine is wearing off. - Vital Signs Vital signs: Temp Pulse Resp BP Pulse Ox 98.0 F 79 20 160/77 H 97 03/05/19 20:25 03/05/19 20:25 03/05/19 20:25 03/05/19 20:25 03/05/19 20:25 Discharge - Discharge Clinical Impression: Muscle spasm Chronic pain Qualifiers: Chronic pain type: chronic pain syndrome Qualified Code(s): G89.4 - Chronic pain syndrome Condition: Good Disposition: HOME, SELF-CARE Instructions: Ice Packs ([facility]), Muscle Strain ([facility]), Myalagia (Muscle Pain) ([facility]) Prescriptions: Diazepam [Valium] 2 mg PO TIDP PRN #9 tablet PRN Reason: Referrals: NICOLE ARAUJO MD [Primary Care Provider] - Follow up as needed
[2019-03-05] MEDS ORDERED: OXYCODONE-ACETAMINOPHEN 5-325 MG TABLET PO ONE (21:48)
[2019-03-05] MEDS ORDERED: HYDROCOD/ACETAMIN 7.5-325 MG/15 ML ORAL SOLN UDCUP PO ONE (22:32)
[2019-03-05] MEDS ORDERED: FENTANYL CITRATE INJ/PF 100 MCG/2 ML AMPUL IM ONE (22:34)
[2019-03-05 23:02] VITALS: BP 158/72
== END 2019-03-05 23:02 | disposition home or self-care (01) ==
LOC: ER 14:15
DX: G89.4 Chronic pain syndrome (principal); M25.551 Pain in right hip; M54.9 Dorsalgia, unspecified; M62.838 Other muscle spasm; I10 Essential (primary) hypertension; Z88.8 Allergy status to other drugs, medicaments and biological substances
CPT/HCPCS: 99283; 96372; A9270; J1885; J3010

== ENCOUNTER 2019-04-07 16:17 | Emergency (ER) | payer MEDICARE, MEDICAID ==
--- NOTE | 2019-04-07 17:05 | ER Document Report ---
HPI - HPI Time Seen by Provider: 04/07/19 16:51 Pain Level: 3 Notes: 03/05/19 16:26 Patient is a 68-year-old female with a history of chronic back pain, hypertension, ambulatory dysfunction who presents to the emergency department complaining of bilateral rib pain x 3 days but persistently has rib pain and back pain. She does follow with pain management, Kary Calle at [facility] pain management. Patient is in a pain contract. denies OZUNA, fever, neck pain, URI, CP, SOB, v/d, dysuria, saddle anesthesia, muscle paralysis/weakness, or rash. Patient denies any recent trauma or falling. Has not tried any heat or icing. - REPRODUCTIVE Reproductive: DENIES: : Past Medical History - General Information source: Patient - Social History Smoking Status: Never Smoker Frequency of alcohol use: None Drug Abuse: None Family History: Reviewed & Not Pertinent, CAD Patient has suicidal ideation: No Patient has homicidal ideation: No - Past Medical History Cardiac Medical History: Reports: Hx Hypercholesterolemia, Hx Hypertension Denies: Hx Coronary Artery Disease, Hx Heart Attack Pulmonary Medical History: Reports: Hx Bronchitis Denies: Hx Asthma, Hx COPD, Hx Pneumonia Neurological Medical History: Reports: Hx Cerebrovascular Accident, Hx Seizures Renal/ Medical History: Denies: Hx Peritoneal Dialysis Malignancy Medical History: Reports: 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 Denies: Hx Hepatitis, Hx Hiatal Hernia, Hx Ulcer Musculoskeletal Medical History: Reports Hx Arthritis - Legs, hips, hands Psychiatric Medical History: Reports: Hx Anxiety, Hx Dementia, Hx Depression, Hx Obsessive Compulsive Disorder Infectious Medical History: Denies: Hx Hepatitis Past Surgical History: Reports: Hx Dilation and Curettage - x2, Hx Gynecologic Surgery - D&C x2, Hx Orthopedic Surgery - 2x left foot, Hx Tonsillectomy. Denies: Hx Hysterectomy, Hx Mastectomy, Hx Open Heart Surgery, Hx Pacemaker - Immunizations Hx Diphtheria, Pertussis, Tetanus Vaccination: Yes Vertical Provider Document - CONSTITUTIONAL Agree With Documented VS: Yes Notes: PHYSICAL EXAMINATION: GENERAL: Well-appearing, well-nourished and in no acute distress. HEAD: Atraumatic, normocephalic. EYES: Pupils equal round and reactive to light, extraocular movements intact, conjunctiva are normal. ENT: Nares patent, oropharynx clear without exudates. Moist mucous membranes. NECK: Normal range of motion, supple without lymphadenopathy LUNGS: Breath sounds clear to auscultation bilaterally and equal. No wheezes rales or rhonchi. Tenderness to bilateral lower ribs on palpation at fifth and sixth intercostal spaces, patient reports pain all over on palpation of ribs bilaterally. HEART: Regular rate and rhythm without murmurs ABDOMEN: Soft, nontender, nondistended abdomen. No guarding, no rebound. No masses appreciated.Soft, nondistended abdomen. No guarding, no rebound. Normal bowel sounds present. No CVA tenderness bilaterally. + mild mid abdominal tenderness Female : deferred Musculoskeletal: noted kyphosis. Normal range of motion, no pitting or edema. No cyanosis. NEUROLOGICAL: Cranial nerves grossly intact. Normal speech, normal gait. Normal sensory, motor exams PSYCH: Normal mood, normal affect. SKIN: Warm, Dry, normal turgor, no rashes or lesions noted. - INFECTION CONTROL TRAVEL OUTSIDE OF THE [place] IN LAST 30 DAYS: No Course - Re-evaluation Re-evalutation: 04/07/19 17:54 Patient presents after falling onto their ribs, complaining of focal pain to the affected area. No tachypnea or hypoxemia at time of arrival. Pain controlled here in the emergency department with narcotic and anti-inflammatory analgesics. Chest x-ray without evidence of acute fracture, pneumothorax or pulmonary contusion. At this time will discharge with return precautions and follow-up recommendations. Verbal discharge instructions given at the bedside and opportunity for questions given. Medication warnings reviewed. Do not drive, drink or operate heavy machinery while taking [place] as it can cause sedation and impairment of cognitive function. Patient is in agreement with this plan and has verbalized understanding of return precautions and the need for primary care follow-up in the next 24-72 hours. After performing a Medical Screening Examination, I estimate there is LOW risk for RUPTURED ESOPHAGUS, PNEUMOTHORAX, PULMONARY EMBOLISM, ACUTE CORONARY SYNDROME, OR THORACIC AORTIC DISSECTION, thus I consider the discharge disposition reasonable. I have reevaluated this patient multiple times and no significant life threatening changes are noted. The patient and I have discussed the diagnosis and risks, and we agree with discharging home with close follow- up. We also discussed returning to the Emergency Department immediately if new or worsening symptoms occur. We have discussed the symptoms which are most concerning (e.g., bloody sputum, worsening pain or shortness of breath) that necessitate immediate return. - Vital Signs Vital signs: Temp Pulse Resp BP Pulse Ox 97.8 F 99 40 H 174/78 H 95 04/07/19 16:38 04/07/19 16:38 04/07/19 16:38 04/07/19 16:39 04/07/19 16:38 Discharge - Discharge Clinical Impression: Rib pain, HTN (hypertension) Condition: Stable Disposition: HOME, SELF-CARE Instructions: Chest Wall Pain ([facility]), Anti-Inflammatory Medication ([facility]) Additional Instructions: Rib Contusion You have been diagnosed as having bruised ribs. It will usually take a few weeks for these injured ribs to heal. You should cough or take a deep breath at least every hour or two to prevent lung complications. You should not engage in any strenuous physical activity until released by your physician. The usual rule is "if it hurts, don't do it." Return if you develop any of the following: (1) Fever or chills. (2) Persistent cough, coughing up blood, or shortness of breath. (3) Increasing pain. (4) Weakness, lightheadedness, or fainting. Your chest wall pain is due to bruising of your ribs. This pain can last for up to 6 weeks. It is very important that you continue to take purposeful deep breaths. For your pain: Continue to take ibuprofen 600 mg every 6 hours or Tylenol 1000 mg every 6 hours. Apply local lidocaine to the area per bottle instructions. There is a product sold [id number] called "Aspercreme with lidocaine" that you can use for this purpose. Please follow-up with her primary care doctor in the next 2-3 days. Return to the emergency department immediately if you develop worsening shortness of breath, increased pain, begin coughing blood, pass out, or have any other symptoms that are worrisome to you. Return immediately for any new or worsening symptoms. Follow up with primary care provider, call tomorrow to make followup appointment. Referrals: NICOLE ARAUJO MD [Primary Care Provider] - 04/08/19
--- NOTE | 2019-04-07 17:38 | RADIOLOGY REPORT (SQ) ---
EXAM DESCRIPTION: RIBS BILATERAL W/PA CXR COMPLETED DATE/TIME: 04/07/2019 5:21 pm REASON FOR STUDY: bilateral rib pain COMPARISON: None. TECHNIQUE: Frontal view of the chest and additional views of the right and left ribs acquired. NUMBER OF VIEWS: Four view. LIMITATIONS: None. FINDINGS: FRONTAL CXR: No pneumothorax. No pleural effusion. No atelectasis or infiltrates. RIBS: No displaced rib fractures. No lytic or blastic bony lesions. OTHER: No other significant finding. IMPRESSION: No displaced rib fractures or other radiographic abnormality of the ribs. No pneumothor ax. COMMENT: SITE OF TRAUMA/COMPLAINT MARKED/STAMP COMPLETED: YES. TECHNICAL DOCUMENTATION: JOB ID: [id number] [employer]- All Rights Reserved Reading location - IP/workstation name: [email or web address]
[2019-04-07] MEDS ORDERED: HYDROCODONE/ACETAMINOPHEN 5-325 MG (6 TAB/ER DISP) PO PRN (17:50)
[2019-04-07 17:51] VITALS: BP 179/66
== END 2019-04-07 18:03 | disposition home or self-care (01) ==
LOC: ER 16:17
DX: R07.81 Pleurodynia (principal); M54.9 Dorsalgia, unspecified; G89.29 Other chronic pain; I10 Essential (primary) hypertension
CPT/HCPCS: 99283; 71111; A9270

== ENCOUNTER 2019-04-19 15:39 | Observation (INO) | payer MEDICARE, MEDICAID ==
[2019-04-19 16:13] LABS: ABSOLUTE BASOPHILS # (AUTO) 0.1 10^3/uL (0.0-0.2); ABSOLUTE EOSINOPHILS # (AUTO) 0.1 10^3/uL (0.0-0.6); ABSOLUTE LYMPHOCYTES (AUTO) 1.4 10^3/uL (0.5-4.7); ABSOLUTE MONOCYTES (AUTO) 0.5 10^3/uL (0.1-1.4); ABSOLUTE NEUT (AUTO) 6.5 10^3/uL (1.7-8.2); BASOPHILS % (AUTO) 0.6 % (0-2); EOSINOPHILS % (AUTO) 0.6 % (0-6); HEMATOCRIT 36.4 % (36.0-47.0); HEMOGLOBIN 12.4 g/dL (12.0-15.5); LYMPHOCYTES % (AUTO) 16.8 % (13-45); MEAN CORPUSCULAR VOLUME 85 fl (80-97); PLATELET COUNT 251 10^3/uL (150-450); RED BLOOD COUNT 4.27 10^6/uL (3.72-5.28); RED CELL DISTRIBUTION WIDTH 14.9 % (11.5-14.0); TOTAL CELLS COUNTED % (AUTO) 100 %; WHITE BLOOD COUNT 8.5 10^3/uL (4.0-10.5)
[2019-04-19 16:30] LABS: ALANINE AMINOTRANSFERASE 18 U/L (9-52); ALBUMIN 4.3 g/dL (3.5-5.0); ALKALINE PHOSPHATASE 139 U/L (38-126); ANION GAP 13 (5-19); ASPARTATE AMINO TRANSFERASE 19 U/L (14-36); BILIRUBIN,DIRECT 0.3 mg/dL (0.0-0.4); BILIRUBIN,TOTAL 0.5 mg/dL (0.2-1.3); BLOOD UREA NITROGEN 11 mg/dL (7-20); CALCIUM 9.6 mg/dL (8.4-10.2); CARBON DIOXIDE 27 mmol/L (22-30); CHLORIDE 90 mmol/L (98-107); CREATINE KINASE 94 U/L (30-135); GLUCOSE 113 mg/dL (75-110); POTASSIUM 3.8 mmol/L (3.6-5.0); SODIUM 130.3 mmol/L (137-145); TOTAL PROTEIN 7.7 g/dL (6.3-8.2)
[2019-04-19 16:40] LABS: CREATINE KINASE MB 2.39 ng/mL (<4.55)
[2019-04-19 16:41] LABS: TROPONIN I < 0.012 ng/mL
--- NOTE | 2019-04-19 17:39 | ER Document Report ---
HPI - HPI Patient complains to provider of: chest pain Time Seen by Provider: 04/19/19 16:53 Onset: This afternoon Onset/Duration: Intermittent Quality of pain: Sharp Severity: Moderate Pain Level: 5 Associated Symptoms: Chest pain, Shortness of breath Exacerbated by: Sitting, Standing, Movement Relieved by: Other - asa and nitro some Similar symptoms previously: Yes Recently seen / treated by doctor: No Notes: this is a 68 yof with the listed pmh, here for intertmittent substernal cp that is nonradiating for the last 2 wks but more frequent today. states she gets it the most during exertion but also is having it at rest now. she states the pain only lasts briefly, less than a min and comes some times in multiple rounds like 4 times a row today which prompted her to come in. she states usually she use to only get it once or twice in a row but now its happening more in a row and more frequently during the day each day. states when she gets the pain she feels sob. states pain is worse with deep breathing also. no uri sx. had a neg stress 09/2015. endorses med compliance. also complains of urinary frequency. she denies seeking medical attention for this cp. hasn't f/u with pcp for it. no blood thinners. she was brought in via ems and given full dose asa and 2 nitro in route which helped some. Pt denies any prior personal cad. denies any family history of sudden or cardiac dz at a young age. no syncope. no palpitations. no hx of mi. remote hx of cva-no grossly residual deficits. no ripping or tearing sensation. denies any blood thinners. No prior history of blood clots. No recent long distance travel/immobilization, recent surgery, exogenous estrogen use, hemoptysis, history of cancer, or calf pain/swelling. No prior history of arrhythmias other than what appears to be paroxysmal a fib. also endorses chf, htn, hyperlipidemia. no recent changes in meds or diet. no other uti sx. no hx of diabetes or asthma. no other associated sx. - ROS Systems Reviewed and Negative: Yes All other systems reviewed and negative - unless mentioned in the hpi to include 10 - REPRODUCTIVE Reproductive: DENIES: : - DERM Skin Color: Normal Past Medical History - General Information source: Patient, [facility] Records - Social History Smoking Status: Former Smoker Frequency of alcohol use: unknown Drug Abuse: None Lives with: Alone Family History: Reviewed & Not Pertinent, CAD Patient has suicidal ideation: No Patient has homicidal ideation: No - Past Medical History Cardiac Medical History: Reports: Hx Atrial Fibrillation - paroxismal-rate controlled, Hx Congestive Heart Failure, Hx Hypercholesterolemia, Hx Hypertension Denies: Hx Coronary Artery Disease, Hx DVT, Hx Heart Attack, Hx Pulmonary Embolism Pulmonary Medical History: Reports: Hx Bronchitis Denies: Hx Asthma, Hx COPD, Hx Pneumonia Neurological Medical History: Reports: Hx Cerebrovascular Accident, Hx Seizures - as a child-none since. hasn't been in meds in a long time. 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 Denies: Hx Hepatitis, Hx Hiatal Hernia, Hx Ulcer Musculoskeletal Medical History: Reports Hx Arthritis - Legs, hips, hands Skin Medical History: Reports None Psychiatric Medical History: Reports: Hx Anxiety, Hx Depression, Hx Obsessive Compulsive Disorder Infectious Medical History: Denies: Hx Hepatitis Past Surgical History: Reports: Hx Dilation and Curettage - x2, Hx Orthopedic Surgery - 2x left foot, Hx Tonsillectomy. Denies: Hx Hysterectomy, Hx Mastectomy, Hx Open Heart Surgery, Hx Pacemaker - Immunizations Hx Diphtheria, Pertussis, Tetanus Vaccination: Yes Vertical Provider Document - CONSTITUTIONAL Notes: >>>> PHYSICAL_EXAM: GENERAL_APPEARANCE: well_nourished, alert, cooperative, no_acute_distress, no_ obvious_discomfort. pleasant, obese some what disheveled middle aged to elderly white female, appears chronically deconditioned, nontoxic, smiling, speaking in full sentences, in no sign of pain or resp distress, no one is with her. VITALS: reviewed, see vital signs table. HEAD: no_swelling\tenderness on the head. normocephalic. atraumatic. no strickland signs. no raccoons eyes. EYES: PERRL, EOMI, conjunctiva_clear. NOSE: no_nasal_discharge. MOUTH: (-)decreased moisture. THROAT: no_tonsilar_inflammation, no_airway_obstruction. no_lymphadenopathy NECK: supple, no_neck_tenderness, (-)thyromegaly. full rom. full strength. no jvd. no carotid bruit. no meningeal signs. BACK: no_back_tenderness. CHEST_WALL: no_chest_tenderness. no overlying skin changes LUNGS: no_wheezing, ctab (-)accessory muscle use, good air exchange bilateral. HEART: normal_rate, normal_rhythm, no_murmur, ABDOMEN: normal_BS, soft, no_abd_tenderness, obese abd, (-)guarding, (- )rebound, no distension or peritoneal signs. no cva ttp EXTREMITIES: strength 5/5 in all_extremities, good pulses in all_extremities, no_swelling\tenderness in the extremities, no_edema. full rom. gait not assessed as pt states she is minimally ambulatory at baseline. good pulses. brisk cap refill. 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 neg luisa sign NEURO: motor and sensation intact, cranial nerves 2-12 intact, cerebellar fxn intact SKIN: warm, dry, good_color, no_rash. MENTAL_STATUS: speech_clear, oriented_X_3, normal_affect, r esponds_appropriately to questions. - INFECTION CONTROL TRAVEL OUTSIDE OF THE [place] IN LAST 30 DAYS: No Course - Re-evaluation Re-evalutation: 04/19/19 19:49 pt here for cp. heart score is a 5. sx improved with asa and nitro. nitropaste placed. she is cp free. also has urinary frequency. no other uti sx. labs unremarkable other than a chronic mild hyponatremia, uti on ua, ucx pending. cxr shows trace pleural effusion but otherwise neg per rad and reviewed by myself. pt informed of her findings. ekg appears slightly changed from last old avail for comparison in [address] jakob elizabeth however no stemi. secondary to heart score, and ekg changes, i did discuss case with hospitalist, dr brooks, who graciously agreed to accept pt for admission for further workup of her sx. she hasn't had a stress test in 2015 either. care transferred to hospitalist in stable condition. please refer to their note for further details of the visit. pt given rocephin also for likely uti after review of prior urine cultures showed susceptibility to this. vss. afebrile. well appearing. non toxic. On reexam, pt improved with tx listed. remained stable. nontoxic. well appearing. pain controlled. case discussed with ER Attending, Dr. jakob elizabeth who directed and agrees with plan of care. Documentation achieved through voice recording which my lead to some occasional accidental typographical errors. Extensive efforts have been made to proof read documentation to make sure these are the least as possible. Category Date Time Status Continuous Cardiac Monitoring (ED) CONTINUOUS Care 04/19/19 15:47 Completed EKG Documentation STAT Care 04/19/19 15:47 Completed EKG Documentation STAT Care 04/19/19 15:48 Completed Oxygen (ED) Nasal Cannula 2 lpm Care 04/19/19 15:47 Active Pulse Oximeter Continuous (ED) CONTINUOUS Care 04/19/19 15:47 Active Saline Lock (ED) NOW Care 04/19/19 15:47 Active CHEST 2 VIEWS [RAD] Stat Exams 04/19/19 17:34 Completed CBC WITH DIFF [HEME] Stat Lab 04/19/19 15:07 Completed COMPREHENSIVE METABOLIC PANEL [CHEM] Stat Lab 04/19/19 15:07 Completed CREATINE KINASE MB [CHEM] Stat Lab 04/19/19 15:07 Completed CREATINE KINASE [CHEM] Stat Lab 04/19/19 15:07 Completed TROPONIN I [CHEM] Stat Lab 04/19/19 15:07 Completed TROPONIN I [CHEM] Stat Lab 04/19/19 19:47 Ordered UA [URINALYSIS] [URIN] Stat Lab 04/19/19 18:54 Completed URINE CULTURE [MC] Stat Lab 04/19/19 19:40 Uncollected Ceftriaxone 1 gm/D5w RTU [Rocephin RTU 1 gm/D5w 50 ml Med 04/19/19 19:46 Ordered Premix] 50 ml IV NOW Nitroglycerin [Nitrol 2% Ointment 1Gm Packet] Med 04/19/19 19:15 Discontinued 1 gm TP NOW ONE Nitroglycerin [Nitrostat 0.4 mg (1/150 Gr) Tabs 25/ Med 04/19/19 19:14 Active Bottle] 1 tab SL ASDIR PRN EKG ER ONLY [ER] Stat Oth 04/19/19 Ordered EKG ER ONLY [ER] Stat Oth 04/19/19 15:47 Ordered 04/21/19 19:38 - Vital Signs Vital signs: Temp Pulse Resp BP Pulse Ox 98.2 F 87 28 H 165/82 H 98 04/19/19 15:48 04/19/19 15:44 04/19/19 17:01 04/19/19 17:01 04/19/19 17:01 - Laboratory Result Diagrams: 04/20/19 05:43 04/20/19 05:43 Laboratory results interpreted by me: 04/19/19 04/19/19 15:07 15:07 RDW 14.9 H Sodium 130.3 L Chloride 90 L Est GFR (Non-Af Amer) 56 L Glucose 113 H Alkaline Phosphatase 139 H 04/19/19 19:49 Labs- All tests 24 hr 04/19/19 04/19/19 04/19/19 15:07 15:07 15:07 WBC 8.5 RBC 4.27 Hgb 12.4 Hct 36.4 MCV 85 MCH 29.0 MCHC 34.0 RDW 14.9 H Plt Count 251 Seg Neutrophils % 76.0 Lymphocytes % 16.8 Monocytes % 6.0 Eosinophils % 0.6 Basophils % 0.6 Absolute Neutrophils 6.5 Absolute Lymphocytes 1.4 Absolute Monocytes 0.5 Absolute Eosinophils 0.1 Absolute Basophils 0.1 Sodium 130.3 L Potassium 3.8 Chloride 90 L Carbon Dioxide 27 Anion Gap 13 BUN 11 Creatinine 0.99 Est GFR ( Amer) > 60 Est GFR (Non-Af Amer) 56 L Glucose 113 H Calcium 9.6 Total Bilirubin 0.5 Direct Bilirubin 0.3 Neonat Total Bilirubin Not Reportable Neonat Direct Bilirubin Not Reportable Neonat Indirect Bili Not Reportable AST 19 ALT 18 Alkaline Phosphatase 139 H Creatine Kinase 94 CK-MB (CK-2) 2.39 Troponin I < 0.012 Total Protein 7.7 Albumin 4.3 Urine Color Urine Appearance Urine pH Ur Specific [place] Urine Protein Urine Glucose (UA) Urine Ketones Urine Blood Urine Nitrite Urine Bilirubin Urine Urobilinogen Ur Leukocyte Esterase Urine WBC (Auto) Urine RBC (Auto) Urine Bacteria (Auto) Urine WBC Clumps Squamous Epi Cells Auto Urine Mucus (Auto) Urine Ascorbic Acid 04/19/19 18:54 WBC RBC Hgb Hct MCV MCH MCHC RDW Plt Count Seg Neutrophils % Lymphocytes % Monocytes % Eosinophils % Basophils % Absolute Neutrophils Absolute Lymphocytes Absolute Monocytes Absolute Eosinophils Absolute Basophils Sodium Potassium Chloride Carbon Dioxide Anion Gap BUN Creatinine Est GFR ( Amer) Est GFR (Non-Af Amer) Glucose Calcium Total Bilirubin Direct Bilirubin Neonat Total Bilirubin Neonat Direct Bilirubin Neonat Indirect Bili AST ALT Alkaline Phosphatase Creatine Kinase CK-MB (CK-2) Troponin I Total Protein Albumin Urine Color YELLOW Urine Appearance CLOUDY Urine pH 6.0 Ur Specific [place] 1.003 Urine Protein NEGATIVE Urine Glucose (UA) NEGATIVE Urine Ketones NEGATIVE Urine Blood SMALL H Urine Nitrite POSITIVE H Urine Bilirubin NEGATIVE Urine Urobilinogen NEGATIVE Ur Leukocyte Esterase LARGE H Urine WBC (Auto) >182 Urine RBC (Auto) 14 Urine Bacteria (Auto) 1+ Urine WBC Clumps FEW Squamous Epi Cells Auto 1 Urine Mucus (Auto) RARE Urine Ascorbic Acid NEGATIVE - Diagnostic Test Radiology reviewed: Image reviewed, Reports reviewed Radiology results interpreted by me: 04/21/19 19:43 Chest X-Ray 04/19/19 17:34 IMPRESSION: No consolidation. Small right pleural effusion. - EKG Interpretation by Me EKG shows normal: Sinus rhythm Rate: Normal Rhythm: NSR When compared to previous EKG there are: Changes noted Additional EKG results interpreted by me: 04/19/19 19:16 79 bpm, abnormal t waves, consider inferior ischemia, no stemi, reviewed with dr jakob elizabeth. ekg is changed from prior in 2016(last old avail for comparison) and now has a new t wave inversion in lead 3 and nonspecific diffuse flattening of t waves throughout per dr jakob elizabeth. 04/19/19 19:47 - Consults gia Consulted provider: will see as inpatient Discharge - Discharge Clinical Impression: Chest pain, rule out acute myocardial infarction, Hyponatremia, UTI (lower urinary tract infection) Chest pain Qualifiers: Chest pain type: unspecified Qualified Code(s): R07.9 - Chest pain, unspecified HTN (hypertension) Qualifiers: Hypertension type: essential hypertension Qualified Code(s): I10 - Essential (primary) hypertension Condition: Fair Disposition: ADMITTED INPATIENT Admitting Provider: Gia (Hospitalist) - accepted the pt at 7:55pm Unit Admitted: Telemetry
[2019-04-19] MEDS ORDERED: NITROGLYCERIN 0.4 MG/TAB 25 TAB/BOTTLE SL PRN (19:14)
[2019-04-19 19:15] LABS: APPEARANCE,URINE CLOUDY; BILIRUBIN,URINE NEGATIVE (NEGATIVE); COLOR,URINE YELLOW; GLUCOSE, URINE NEGATIVE (NEGATIVE); KETONES,URINE NEGATIVE (NEGATIVE); LEUKOCYTE ESTERASE,URINE LARGE (NEGATIVE); NITRITE,URINE POSITIVE (NEGATIVE); PROTEIN,URINE NEGATIVE (NEGATIVE); URINE SPECIFIC GRAVITY 1.003; UROBILINOGEN,URINE NEGATIVE mg/dL (<2.0)
[2019-04-19] MEDS ORDERED: NITROGLYCERIN 2% OINTMENT 1 GM PACKET TP ONE (19:15)
[2019-04-19] MEDS ORDERED: CEFTRIAXONE 1 GM/D5W RTU 1 GM/50 ML RTUPB IV ONE (19:46)
--- NOTE | 2019-04-19 19:50 | RADIOLOGY REPORT (SQ) ---
EXAM DESCRIPTION: CHEST 2 VIEWS COMPLETED DATE/TIME: 04/19/2019 7:29 pm REASON FOR STUDY: chest pain COMPARISON: 03/31/2016 TECHNIQUE: Frontal and lateral radiographic views of the chest acquired. NUMBER OF VIEWS: Two view. LIMITATIONS: None. FINDINGS: LUNGS AND PLEURA: No pneumothorax. No consolidation. Small right pleural effusion. MEDIASTINUM AND HILAR STRUCTURES: Stable. HEART AND VASCULAR STRUCTURES: Stable. BONES: No acute findings. Similar moderate kyphosis of the lower thoracic spine. HARDWARE: None in the chest. OTHER: No other significant finding. IMPRESSION: No consolidation. Small right pleural effusion. TECHNICAL DOCUMENTATION: JOB ID: [id number] [employer]- All Rights Reserved Reading location - IP/workstation name: [email or web address]
[2019-04-19] MEDS ORDERED: TEMAZEPAM 15 MG CAPSULE PO PRN (20:22)
[2019-04-19] MEDS ORDERED: MAGNESIUM HYDROXIDE SUSP 30 ML UDCUP PO PRN (20:22)
[2019-04-19] MEDS ORDERED: MAG HYDROX/AL HYDROX/SIMETH SUSP 30 ML UDCUP PO PRN (20:22)
[2019-04-19] MEDS ORDERED: IBUPROFEN 800 MG TABLET PO PRN (20:27)
[2019-04-19] MEDS ORDERED: ACETAMINOPHEN 325 MG TABLET PO PRN (20:27)
[2019-04-19] MEDS ORDERED: HYDRALAZINE HCL INJ/PF 20 MG/1 ML SDV IV PRN (20:27)
[2019-04-19] MEDS: NITROGLYCERIN 2% OINTMENT 1 GM PACKET TP SCH (20:54)
[2019-04-19] MEDS: FAMOTIDINE 20 MG TABLET PO SCH (21:30)
[2019-04-19] MEDS: MORPHINE SULFATE 10 MG/ML INJ IV PRN (21:37)
[2019-04-19] MEDS: HEPARIN SOD (PORCINE) 5,000 UNIT/ML 1 ML VIAL SUBCUT SCH (21:38)
[2019-04-19 21:45] LABS: FREE T3 3.34 pg/mL (2.77-5.27); FREE T4 (FREE THYROXINE) 1.66 ng/dL (0.78-2.19)
[2019-04-19 21:59] LABS: THYROID STIMULATING HORMONE 2.26 uIU/mL (0.47-4.68)
[2019-04-19 22:54] LABS: CREATINE KINASE MB 1.52 ng/mL (<4.55)
[2019-04-19 22:59] LABS: TROPONIN I < 0.012 ng/mL
--- NOTE | 2019-04-20 00:28 | PDOC H&P ---
History of Present Illness Admission Date/PCP: 04/19/2019 19:57 NICOLE ARAUJO MD Patient complains of: Chest pain History of Present Illness: KIMMIE ANDERSON is a 68 year old female who presented to the emergency room with a 2- week history of chest pain. The patient admits intermittent episodes of chest pain lasting for 1-3 seconds and resolving spontaneously. She describes the chest pain as a sharp moderate to severe pain in the substernal region of her chest with radiation to the entire anterior chest if she gets 4 rapidly sequenced pains within 20-30 seconds. Her pain is made worse/elicited by deep breathing and exertion, but does occur frequently while she is at rest. Her pain is accompanied by moderate dyspnea. She denies other associated or accompanying signs and symptoms. She admits numerous prior similar episodes going back many years. She had a negative cardiac stress test in September 2015. She has not identified any other aggravating or ameliorating factors for her chest pain. She has tried "prayers" and "casting out" her pain without bene ficial effect. In the emergency room she was found to have negative cardiac enzymes and an EKG which did not reflect acute myocardial ischemia or injury. She was subsequently admitted to the hospital, on observation status, for further evaluation and treatment. Past Medical History Cardiac Medical History: Reports: Hyperlipidema, Hypertension Denies: Atrial Fibrillation, Congestive Heart Failure, Coronary Artery Disease, DVT, Myocardial Infarction, Peripheral Vascular Disease, Pulmonary Embolism Pulmonary Medical History: Reports: Bronchitis Denies: Asthma, Chronic Obstructive Pulmonary Disease (COPD), Pneumonia, Respiratory Failure EENT Medical History: Denies: Cataracts, Ears - Hearing aids Neurological Medical History: Reports: Seizures - As a child Denies: Hemorrhagic CVA, Ischemic CVA, Multiple Sclerosis Renal/ Medical History: Denies: Chronic Kidney Disease, Nephrolithiasis Malignancy Medical History: 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 GI Medical History: Reports: Gastroesophageal Reflux Disease Denies: Cirrhosis, Crohn's Disease, Hepatitis, Hiatal Hernia, Peptic Ulcer Disease, Ulcerative Colitis Musculoskeltal Medical History: Reports: Arthritis - Legs, hips, hands Denies: Fibromyalgia, Gout Skin Medical History: Denies: Eczema, Psoriasis Psychiatric Medical History: Reports: Dementia, Depression, General Anxiety Disorder, Other - Obsessive-compulsive disorder Denies: Alcohol Dependency, Substance Abuse, Tobacco Dependency Traumatic Medical History: Reports: None Hematology: Reports: Anemia - with first Denies: Bleeding Tendencies Infectious Medical History: Reports: None Past Surgical History Past Surgical History: Reports: Orthopedic Surgery - 2x left foot, Tonsillectomy, Other - Cervical dilatation and uterine curettage x2 Social History Information Source: Patient Lives with: Spouse/Significant other Smoking Status: Never Smoker Frequency of Alcohol Use: None Hx Recreational Drug Use: No Drugs: None Hx Prescription Drug Abuse: No - Advance Directive Resuscitation Status: Full Code Surrogate healthcare decision maker:: Carina Ackerman Family History Family History: CAD. denies: DM, Hypertension, Malignancy Parental Family History Reviewed: Yes Children Family History Reviewed: No Sibling(s) Family History Reviewed.: Yes Medication/Allergy Home Medications: Clonidine HCl [Catapres] 0.1 mg PO TID 08/30/15 Amlodipine Besylate [Norvasc 5 mg Tablet] 5 mg PO DAILY 04/19/19 Buspirone HCl [Buspar 10 mg Tablet] 20 mg PO TIDP PRN 04/19/19 Metoprolol Tartrate [Lopressor 25 mg Tablet] 12.5 mg PO Q12 04/19/19 Allergies/Adverse Reactions: decongestants Allergy (Uncoded 04/07/19 16:30) steroids Allergy (Uncoded 04/07/19 16:30) DECONGESTANTS Adverse Reaction (Uncoded 04/07/19 16:30) INCREASES BP STEROIDS Adverse Reaction (Uncoded 04/07/19 16:30) INDUCES FEVER Review of Systems Constitutional: ABSENT: anorexia, fever(s) Eyes: ABSENT: visual disturbances, other - Eye pain Ears: ABSENT: hearing changes, other - Ear pain Nose, Mouth, and Throat: ABSENT: mouth pain, sore throat Cardiovascular: PRESENT: as per HPI, chest pain. ABSENT: dyspnea on exertion, edema, orthropnea, palpitations Respiratory: PRESENT: as per HPI, dyspnea. ABSENT: cough, hemoptysis, sputum Gastrointestinal: ABSENT: abdominal pain, constipation, diarrhea, nausea, vomiting Genitourinary: ABSENT: dysuria, hematuria Musculoskeletal: ABSENT: joint swelling, muscle weakness Integumentary: ABSENT: pruritus, rash Neurological: ABSENT: confusion, convulsions, focal weakness, memory loss, syncope Psychiatric: ABSENT: anxiety, depression Endocrine: ABSENT: cold intolerance, heat intolerance Hematologic/Lymphatic: ABSENT: easy bleeding, easy bruising Physical Exam Vital Signs: Temp Pulse Resp BP Pulse Ox 98.2 F 87 21 H 179/77 H 99 04/19/19 15:48 04/19/19 15:44 04/19/19 18:01 04/19/19 18:01 04/19/19 18:01 Intake & Output 04/17/19 04/18/19 04/19/19 23:59 23:59 23:59 Weight 68.2 kg General appearance: PRESENT: no acute distress, cooperative Head exam: PRESENT: atraumatic, normocephalic Eye exam: PRESENT: conjunctiva pink. ABSENT: conjunctival injection, scleral icterus Ear exam: PRESENT: normal external ear exam. ABSENT: bleeding, drainage Mouth exam: PRESENT: dry mucosa, neck supple Neck exam: ABSENT: JVD, thyromegaly, tracheal deviation Respiratory exam: PRESENT: clear to auscultation stevan, symmetrical, unlabored Cardiovascular exam: PRESENT: RRR. ABSENT: clicks, gallop, rubs Pulses: PRESENT: normal radial pulses, normal dorsalis pedis pul Vascular exam: PRESENT: normal capillary refill. ABSENT: pallor GI/Abdominal exam: PRESENT: normal bowel sounds, soft Rectal exam: PRESENT: deferred Extremities exam: ABSENT: joint swelling, pedal edema, tenderness Musculoskeletal exam: PRESENT: full ROM, normal inspection Neurological exam: PRESENT: alert, oriented to person, oriented to place, oriented to time, oriented to situation, CN II-XII grossly intact. ABSENT: motor sensory deficit Psychiatric exam: PRESENT: appropriate affect, normal mood Skin exam: PRESENT: dry, intact, warm. ABSENT: jaundice, rash, urticaria Results Laboratory Results: 04/19/19 15:07 04/19/19 15:07 04/19/19 04/19/19 04/19/19 15:07 15:07 18:54 WBC 8.5 RBC 4.27 Hgb 12.4 Hct 36.4 MCV 85 MCH 29.0 MCHC 34.0 RDW 14.9 H Plt Count 251 Seg Neutrophils % 76.0 Lymphocytes % 16.8 Monocytes % 6.0 Eosinophils % 0.6 Basophils % 0.6 Absolute Neutrophils 6.5 Absolute Lymphocytes 1.4 Absolute Monocytes 0.5 Absolute Eosinophils 0.1 Absolute Basophils 0.1 Sodium 130.3 L Potassium 3.8 Chloride 90 L Carbon Dioxide 27 Anion Gap 13 BUN 11 Creatinine 0.99 Est GFR ( Amer) > 60 Est GFR (Non-Af Amer) 56 L Glucose 113 H Calcium 9.6 Total Bilirubin 0.5 AST 19 ALT 18 Alkaline Phosphatase 139 H Total Protein 7.7 Albumin 4.3 Urine Color YELLOW Urine Appearance CLOUDY Urine pH 6.0 Ur Specific [place] 1.003 Urine Protein NEGATIVE Urine Glucose (UA) NEGATIVE Urine Ketones NEGATIVE Urine Blood SMALL H Urine Nitrite POSITIVE H Ur Leukocyte Esterase LARGE H Urine WBC (Auto) >182 Urine RBC (Auto) 14 04/19/19 04/19/19 15:07 15:07 Creatine Kinase 94 CK-MB (CK-2) 2.39 Troponin I < 0.012 Impressions: Chest X-Ray 04/19/19 17:34 IMPRESSION: No consolidation. Small right pleural effusion. Assessment and Plan - Diagnosis (1) Chest pain Qualifiers: Chest pain type: unspecified Qualified Code(s): R07.9 - Chest pain, unspecified Is this a current diagnosis for this admission?: Yes Plan: Patient will have serial cardiac enzymes and EKGs performed. She will have a Cardiolite stress test in the morning if her enzymes remain negative. She will receive morphine sulfate 2 to 4 mg IV every 2 hours on a as needed basis per sliding scale. She will be continued with nitroglycerin paste 1 inch changed to every 6 hours. (2) HTN (hypertension) Qualifiers: Hypertension type: essential hypertension Qualified Code(s): I10 - Ess ential (primary) hypertension Is this a current diagnosis for this admission?: Yes Plan: Patient's usual antihypertensive medication will be restarted once her medical reconciliation has been completed and her home meds have been verified. In the interim she will receive hydralazine 20 mg IV every 4 hours on a as needed basis for hypertension of systolic pressure greater than 160 and/or diastolic pressure greater than 100. Patient's blood pressure be monitored closely throughout her hospital stay. (3) Hypercholesteremia Is this a current diagnosis for this admission?: Yes Plan: Patient's usual lipid therapy medications will be resumed as soon as her medical reconciliation has been completed and her home meds have been verified. A lipid profile will be obtained to assess the efficacy of her current therapy. A CBC, metabolic profile and magnesium level will also be obtained in the morning along with a thyroid profile and a hemoglobin A1c. (4) UTI (lower urinary tract infection) Is this a current diagnosis for this admission?: Yes Plan: Patient's urinary tract infection be treated with cephalexin 500 mg p.o. twice daily x5 days. - Time Time Spent with patient: 25-34 minutes Medications reviewed and adjusted accordingly: Yes Anticipated discharge: Home Within: within 48 hours - Inpatient Certification Based on my medical assessment, after consideration of the patient's comorbidities, presenting symptoms, or acuity I expect that the services needed warrant INPATIENT care.: No I certify that my determination is in accordance with my understanding of Medicare's requirements for reasonable and necessary INPATIENT services [42 CFR 412.3e].: No Medical Necessity: Need Close Monitoring Due to Risk of Patient Decompensation, Need For Continuous Telemetry Monitoring, Need for Pain Control
--- NOTE | 2019-04-20 00:30 | ADVANCED CARE ---
- Diagnosis (1) Chest pain Diagnosis Current: Yes (2) HTN (hypertension) Diagnosis Current: Yes (3) Hypercholesteremia Diagnosis Current: Yes (4) UTI (lower urinary tract infection) Diagnosis Current: Yes Attendance: The patient and myself. Resuscitation Status: Full Code Discussion: After an extensive discussion the patient has determined that she will remain full code resuscitation status during this hospital stay. She has named Carina Ackerman as her designated surrogate medical decision-maker. Care Planning Goals: 1. Patient will be full CODE STATUS for this hospital stay. 2. Carinaunique Ackerman is her designated surrogate medical decision-maker. Document(s) Completed: The following entries will be made to the patient's permanent medical record, current medical record and current medical orders via EMR entry: 1. Patient will be full CODE STATUS for this hospital stay. 2. Carina Ackerman is her designated surrogate medical decision-maker. Time Spent: 16 minutes
[2019-04-20] MEDS: NITROGLYCERIN 2% OINTMENT 1 GM PACKET TP SCH ×4 (02:05→20:36)
[2019-04-20] MEDS: MORPHINE SULFATE 10 MG/ML INJ IV PRN ×2 (02:30→16:35)
[2019-04-20] MEDS: HEPARIN SOD (PORCINE) 5,000 UNIT/ML 1 ML VIAL SUBCUT SCH ×3 (06:08→22:43)
[2019-04-20 06:11] LABS: HEMATOCRIT 33.5 % (36.0-47.0); HEMOGLOBIN 11.4 g/dL (12.0-15.5); MEAN CORPUSCULAR HGB CONC 34.2 g/dL (32.0-36.0); MEAN CORPUSCULAR VOLUME 85 fl (80-97); PLATELET COUNT 237 10^3/uL (150-450); RED BLOOD COUNT 3.95 10^6/uL (3.72-5.28); RED CELL DISTRIBUTION WIDTH 14.6 % (11.5-14.0); WHITE BLOOD COUNT 9.5 10^3/uL (4.0-10.5)
[2019-04-20 06:29] LABS: ANION GAP 11 (5-19); BLOOD UREA NITROGEN 9 mg/dL (7-20); CALCIUM 8.9 mg/dL (8.4-10.2); CARBON DIOXIDE 27 mmol/L (22-30); CHLORIDE 94 mmol/L (98-107); CHOLESTEROL 155.57 mg/dL (0-200); GLUCOSE 100 mg/dL (75-110); POTASSIUM 3.5 mmol/L (3.6-5.0); SODIUM 131.6 mmol/L (137-145); TRIGLYCERIDES 120 mg/dL (<150)
[2019-04-20 06:39] LABS: DIRECT LDL 87 mg/dL (<100)
[2019-04-20 06:55] LABS: CREATINE KINASE MB 1.17 ng/mL (<4.55); TROPONIN I 0.012 ng/mL
[2019-04-20] MEDS: DOCUSATE SODIUM 100 MG CAPSULE PO SCH ×2 (09:41→17:41)
[2019-04-20] MEDS: FAMOTIDINE 20 MG TABLET PO SCH ×2 (09:42→22:28)
[2019-04-20] MEDS ORDERED: CEPHALEXIN 500 MG CAPSULE PO SCH (10:00)
[2019-04-20] MEDS: ONDANSETRON HCL INJ/PF 4 MG/2 ML SDV IV PRN (10:39)
[2019-04-20 11:01] LABS: CREATINE KINASE MB 1.66 ng/mL (<4.55); TROPONIN I 0.013 ng/mL
[2019-04-20] MEDS ORDERED: BUSPIRONE HCL 10 MG TABLET PO PRN (11:28)
[2019-04-20] MEDS ORDERED: ASPIRIN 325 MG TABLET PO ONE (12:15)
[2019-04-20] MEDS: AMLODIPINE BESYLATE 5 MG TABLET PO SCH (13:22)
[2019-04-20] MEDS: CLONIDINE HCL 0.1 MG TABLET PO SCH ×2 (16:48→22:32)
--- NOTE | 2019-04-20 17:52 | PDOC PROGRESS REPORT ---
Subjective Progress Note for:: 04/20/19 Subjective:: KIMMIE ANDERSON is a 68 year old female who presented to the emergency room with a 2- week history of chest pain. The patient admits intermittent episodes of chest pain lasting for 1-3 seconds and resolving spontaneously. She describes the chest pain as a sharp moderate to severe pain in the substernal region of her chest with radiation to the entire anterior chest if she gets 4 rapidly sequenced pains within 20-30 seconds. Her pain is made worse/elicited by deep breathing and exertion, but does occur frequently while she is at rest. Her pain is accompanied by moderate dyspnea. She denies other associated or accompanying signs and symptoms. She admits numerous prior similar episodes going back many years. She had a negative cardiac stress test in September 2015. She has not identified any other aggravating or ameliorating factors for her chest pain. She has tried "prayers" and "casting out" her pain without beneficial effect. In the emergency room she was found to have negative cardiac enzymes and an EKG which did not reflect acute myocardial ischemia or injury. She was subsequently admitted to the hospital, on observation status, for further evaluation and treatment. 04/20/2019. No acute events overnight. Complaining of nausea and vomiting. Chest pain resolved. Denies any fever, chills, abdominal pain, diarrhea, constipation or any urinary symptoms. Reason For Visit: CHEST PAIN Physical Exam Vital Signs: Temp Pulse Resp BP Pulse Ox 97.9 F 100 18 160/67 H 92 04/20/19 10:45 04/20/19 10:45 04/20/19 10:45 04/20/19 10:45 04/20/19 10:45 Intake & Output 04/19/19 04/20/19 04/21/19 06:59 06:59 06:59 Intake Total 50 500 Output Total 1000 Balance 50 -500 Weight 68.2 kg General appearance: PRESENT: no acute distress, well-developed, well-nourished Head exam: PRESENT: atraumatic, normocephalic Eye exam: PRESENT: conjunctiva pink, EOMI, PERRLA. ABSENT: scleral icterus Ear exam: PRESENT: normal external ear exam Mouth exam: PRESENT: moist, tongue midline Neck exam: ABSENT: carotid bruit, JVD, lymphadenopathy, thyromegaly Respiratory exam: PRESENT: clear to auscultation stevan. ABSENT: rales, rhonchi, wheezes Cardiovascular exam: PRESENT: RRR. ABSENT: diastolic murmur, rubs, systolic murmur Pulses: PRESENT: normal dorsalis pedis pul Vascular exam: PRESENT: normal capillary refill GI/Abdominal exam: PRESENT: normal bowel sounds, soft. ABSENT: distended, guarding, mass, organolmegaly, rebound, tenderness Rectal exam: PRESENT: deferred Extremities exam: PRESENT: full ROM. ABSENT: calf tenderness, clubbing, pedal edema Neurological exam: PRESENT: alert, awake, oriented to person, oriented to place, oriented to time, oriented to situation, CN II-XII grossly intact. ABSENT: motor sensory deficit Psychiatric exam: PRESENT: appropriate affect, normal mood. ABSENT: homicidal ideation, suicidal ideation Skin exam: PRESENT: dry, intact, warm. ABSENT: cyanosis, rash Results Laboratory Results: 04/20/19 05:43 04/20/19 05:43 04/19/19 04/19/19 04/20/19 15:07 18:54 05:43 WBC 9.5 RBC 3.95 Hgb 11.4 L Hct 33.5 L MCV 85 MCH 29.0 MCHC 34.2 RDW 14.6 H Plt Count 237 Sodium Potassium Chloride Carbon Dioxide Anion Gap BUN Creatinine Est GFR ( Amer) Est GFR (Non-Af Amer) Glucose Calcium Magnesium Triglycerides Cholesterol LDL Cholesterol Direct VLDL Cholesterol HDL Cholesterol TSH 2.26 Free T4 1.66 Free T3 pg/mL 3.34 Urine Color YELLOW Urine Appearance CLOUDY Urine pH 6.0 Ur Specific [place] 1.003 Urine Protein NEGATIVE Urine Glucose (UA) NEGATIVE Urine Ketones NEGATIVE Urine Blood SMALL H Urine Nitrite POSITIVE H Ur Leukocyte Esterase LARGE H Urine WBC (Auto) >182 Urine RBC (Auto) 14 04/20/19 05:43 WBC RBC Hgb Hct MCV MCH MCHC RDW Plt Count Sodium 131.6 L Potassium 3.5 L Chloride 94 L Carbon Dioxide 27 Anion Gap 11 BUN 9 Creatinine 0.77 Est GFR ( Amer) > 60 Est GFR (Non-Af Amer) > 60 Glucose 100 Calcium 8.9 Magnesium 1.7 Triglycerides 120 Cholesterol 155.57 LDL Cholesterol Direct 87 VLDL Cholesterol 24.0 HDL Cholesterol 46 TSH Free T4 Free T3 pg/mL Urine Color Urine Appearance Urine pH Ur Specific [place] Urine Protein Urine Glucose (UA) Urine Ketones Urine Blood Urine Nitrite Ur Leukocyte Esterase Urine WBC (Auto) Urine RBC (Auto) 04/19/19 04/19/19 04/19/19 15:07 15:07 19:50 Creatine Kinase 94 CK-MB (CK-2) 2.39 Troponin I < 0.012 < 0.012 NT-Pro-B Natriuret Pep 04/19/19 04/19/19 04/20/19 21:50 21:50 05:43 Creatine Kinase 79 57 CK-MB (CK-2) 1.52 Troponin I < 0.012 NT-Pro-B Natriuret Pep 04/20/19 04/20/19 04/20/19 05:43 05:43 10:15 Creatine Kinase 62 CK-MB (CK-2) 1.17 Troponin I 0.012 NT-Pro-B Natriuret Pep 1280 H 04/20/19 10:15 Creatine Kinase CK-MB (CK-2) 1.66 Troponin I 0.013 NT-Pro-B Natriuret Pep Impressions: Chest X-Ray 04/19/19 17:34 IMPRESSION: No consolidation. Small right pleural effusion. Assessment and Plan - Diagnosis (1) Chest pain Qualifiers: Chest pain type: unspecified Qualified Code(s): R07.9 - Chest pain, unspecified Is this a current diagnosis for this admission?: Yes Plan: Patient will have serial cardiac enzymes and EKGs performed. She will have a Cardiolite stress test in the morning if her enzymes remain negative. She will receive morphine sulfate 2 to 4 mg IV every 2 hours on a as needed basis per sliding scale. She will be continued with nitroglycerin paste 1 inch changed to every 6 hours. (2) UTI (lower urinary tract infection) Is this a current diagnosis for this admission?: Yes Plan: Patient's urinary tract infection be treated with cephalexin 500 mg p.o. twice daily x5 days. (3) HTN (hypertension) Qualifiers: Hypertension type: essential hypertension Qualified Code(s): I10 - Essential (primary) hypertension Is this a current diagnosis for this admission?: Yes Plan: Patient's usual antihypertensive medication will be restarted once her medical reconciliation has been completed and her home meds have been verified. In the interim she will receive hydralazine 20 mg IV every 4 hours on a as needed basis for hypertension of systolic pressure greater than 160 and/or diastolic pressure greater than 100. Patient's blood pressure be monitored closely throughout her hospital stay. (4) Hypercholesteremia Is this a current diagnosis for this admission?: Yes Plan: Patient's usual lipid therapy medications will be resumed as soon as her medical reconciliation has been completed and her home meds have been verified. A lipid profile will be obtained to assess the efficacy of her current therapy. A CBC, metabolic profile and magnesium level will also be obtained in the morning along with a thyroid profile and a hemoglobin A1c.
[2019-04-20] MEDS: METOPROLOL TARTRATE 25 MG TABLET PO SCH (22:28)
[2019-04-20] MEDS: CEPHALEXIN 250 MG/5 ML SUSP 100 ML PO SCH (22:41)
[2019-04-21] MEDS: NITROGLYCERIN 2% OINTMENT 1 GM PACKET TP SCH ×3 (02:16→14:16)
[2019-04-21] MEDS: HEPARIN SOD (PORCINE) 5,000 UNIT/ML 1 ML VIAL SUBCUT SCH ×2 (05:15→14:16)
[2019-04-21] MEDS: CLONIDINE HCL 0.1 MG TABLET PO SCH ×2 (05:15→14:15)
--- NOTE | 2019-04-21 08:00 | EKG REPORT ---
SEVERITY:- ABNORMAL ECG - SINUS RHYTHM ATRIAL TRIGEMINY NONSPECIFIC T ABNORMALITIES, ANTERIOR LEADS : Confirmed by: Mike Gardiner MD 21-Apr-2019 07:59:57
--- NOTE | 2019-04-21 08:00 | EKG REPORT ---
SEVERITY:- ABNORMAL ECG - SINUS RHYTHM ABNORMAL T, CONSIDER ISCHEMIA, INFERIOR LEADS : Confirmed by: Mike Gardiner MD 21-Apr-2019 08:00:12
[2019-04-21] MEDS: ONDANSETRON HCL INJ/PF 4 MG/2 ML SDV IV PRN (08:31)
[2019-04-21] MEDS ORDERED: ASPIRIN 81 MG TABLET, CHEWABLE PO SCH (10:00)
[2019-04-21] MEDS: DOCUSATE SODIUM 100 MG CAPSULE PO SCH (11:46)
[2019-04-21] MEDS: AMLODIPINE BESYLATE 5 MG TABLET PO SCH (11:49)
[2019-04-21] MEDS: METOPROLOL TARTRATE 25 MG TABLET PO SCH (11:49)
[2019-04-21] MEDS: FAMOTIDINE 20 MG TABLET PO SCH (11:49)
[2019-04-21] MEDS: CEPHALEXIN 250 MG/5 ML SUSP 100 ML PO SCH (11:49)
[2019-04-21] MEDS ORDERED: REGADENOSON INJ 0.4 MG/5 ML DISP.SYRIN IV ONE (12:32)
[2019-04-21] MEDS: MORPHINE SULFATE 10 MG/ML INJ IV PRN (13:25)
[2019-04-21 15:59] VITALS: BP 136/71
--- NOTE | 2019-04-25 15:30 | PDOC DISCHARGE SUMMARY ---
General - Admit/Disc Date/PCP Admission Date/Primary Care Provider: 04/19/19 20:06 NICOLE ARAUJO MD Discharge Date: 04/21/19 - Discharge Diagnosis (1) Chest pain Is this a current diagnosis for this admission?: Yes (2) UTI (lower urinary tract infection) Is this a current diagnosis for this admission?: Yes (3) HTN (hypertension) Is this a current diagnosis for this admission?: Yes (4) Hypercholesteremia Is this a current diagnosis for this admission?: Yes - Additional Information Resuscitation Status: Full Code Discharge Activity: Activity As Tolerated, Balance Activity w/Rest Prescriptions: Aspirin [Aspirin 81 mg Chewable Tablet] 81 mg PO DAILY 30 Days #30 tab.chew Cephalexin Monohydrate [Keflex 250 mg/5 ml Susp 100 ml] 500 mg PO Q12 4 Days #1 bottle Diclofenac Sodium [Voltaren] 100 gm TP DAILY 7 Days #1 gel..gm. Home Medications: Clonidine HCl [Catapres] 0.1 mg PO TID 08/30/15 Amlodipine Besylate [Norvasc 5 mg Tablet] 5 mg PO DAILY 04/19/19 Buspirone HCl [Buspar 10 mg Tablet] 20 mg PO TIDP PRN 04/19/19 Metoprolol Tartrate [Lopressor 25 mg Tablet] 12.5 mg PO Q12 04/19/19 Aspirin [Aspirin 81 mg Chewable Tablet] 81 mg PO DAILY 30 Days #30 tab.chew 04/21/19 Cephalexin Monohydrate [Keflex 250 mg/5 ml Susp 100 ml] 500 mg PO Q12 4 Days #1 bottle 04/21/19 Diclofenac Sodium [Voltaren] 100 gm TP DAILY 7 Days #1 gel..gm. 04/21/19 History of Present Illness History of Present Illness: KIMMIE ANDERSON is a 68 year old female who presented to the emergency room with a 2- week history of chest pain. The patient admits intermittent episodes of chest pain lasting for 1-3 seconds and resolving spontaneously. She describes the chest pain as a sharp moderate to severe pain in the substernal region of her chest with radiation to the entire anterior chest if she gets 4 rapidly sequenced pains within 20-30 seconds. Her pain is made worse/elicited by deep breathing and exertion, but does occur frequently while she is at rest. Her pain is accompanied by moderate dyspnea. She denies other associated or accompa nying signs and symptoms. She admits numerous prior similar episodes going back many years. She had a negative cardiac stress test in September 2015. She has not identified any other aggravating or ameliorating factors for her chest pain. She has tried "prayers" and "casting out" her pain without beneficial effect. In the emergency room she was found to have negative cardiac enzymes and an EKG which did not reflect acute myocardial ischemia or injury. She was subsequently admitted to the hospital, on observation status, for further evaluation and treatment. Hospital Course Hospital Course: (1) Chest pain Most likely costochondritis. Noncardiac. Patient has tenderness to palpation over the anterior chest. Was a started on antiplatelets, sublingual nitroglycerin, PRN morphine, admitted to telemetry, blockers, JAZIEL, statins. Troponins less than 0.023. EKG and NS. No acute changes. Nuclear stress test reported as normal. Patient was asked to restart her home meds and follow-up with PCP. (2) UTI (lower urinary tract infection) Due to E. coli pansensitive. Patient was a started on cephalexin 500 mg p.o. twice daily. Was discharged on cephalexin 500 p.o. daily to complete a total of 5 days. Follow-up with PCP. (3) HTN (hypertension) Admitted to telemetry. Restarted on home meds PRN IV hydralazine. Normotensive euvolemic at home. Advised to restart home meds upon discharge. (4) Hypercholesteremia Restart his statins. Advised on diet and lifestyle modification. Lipid panel WNL. A1c WNL. Thyroid function test WNL. Physical Exam Vital Signs: Temp Pulse Resp BP Pulse Ox 98.6 F 85 16 136/71 H 93 04/21/19 16:15 04/21/19 16:15 04/21/19 16:15 04/21/19 16:15 04/21/19 16:15 General appearance: PRESENT: no acute distress, well-developed, well-nourished Head exam: PRESENT: atraumatic, normocephalic Respiratory exam: PRESENT: clear to auscultation stevan. ABSENT: rales, rhonchi, wheezes Cardiovascular exam: PRESENT: RRR, other - Anterior chest wall diffuse TTP.. ABSENT: diastolic murmur, rubs, systolic murmur GI/Abdominal exam: PRESENT: normal bowel sounds, soft. ABSENT: distended, guarding, mass, organolmegaly, rebound, tenderness Extremities exam: PRESENT: full ROM. ABSENT: calf tenderness, clubbing, pedal edema Neurological exam: PRESENT: alert, awake, oriented to person, oriented to place, oriented to time, oriented to situation, CN II-XII grossly intact. ABSENT: motor sensory deficit Results Laboratory Results: 04/20/19 05:43 04/20/19 05:43 04/19/19 04/19/19 04/19/19 15:07 15:07 19:50 Creatine Kinase 94 CK-MB (CK-2) 2.39 Troponin I < 0.012 < 0.012 NT-Pro-B Natriuret Pep 04/19/19 04/19/19 04/20/19 21:50 21:50 05:43 Creatine Kinase 79 57 CK-MB (CK-2) 1.52 Troponin I < 0.012 NT-Pro-B Natriuret Pep 04/20/19 04/20/19 04/20/19 05:43 05:43 10:15 Creatine Kinase 62 CK-MB (CK-2) 1.17 Troponin I 0.012 NT-Pro-B Natriuret Pep 1280 H 04/20/19 10:15 Creatine Kinase CK-MB (CK-2) 1.66 Troponin I 0.013 NT-Pro-B Natriuret Pep Impressions: Chest X-Ray 04/19/19 17:34 IMPRESSION: No consolidation. Small right pleural effusion. Qualifiers - * PATIENT BEING DISCHARGED WITH ANY OF THE FOLLOWING DIAGNOSIS: No Acute Heart Failure - Is this a Heart Failure Patient?: No
== END 2019-04-21 17:58 | disposition home health service (06) ==
LOC: ER 15:39 → INTOOBSV 20:06 → EH 20:06 → 5 22:12
PROVIDERS: ADMIT Emergency Medicine; ATTEND Emergency Medicine
DX: R07.89 Other chest pain (principal); N39.0 Urinary tract infection, site not specified; B96.20 Unspecified Escherichia coli [E. coli] as the cause of diseases classified elsewhere; I10 Essential (primary) hypertension; E78.00 Pure hypercholesterolemia, unspecified; R06.00 Dyspnea, unspecified; J90 Pleural effusion, not elsewhere classified; F03.90 Unspecified dementia, unspecified severity, without behavioral disturbance, psychotic disturbance, mood disturbance, and anxiety; R11.2 Nausea with vomiting, unspecified; E66.9 Obesity, unspecified; E87.1 Hypo-osmolality and hyponatremia; F41.1 Generalized anxiety disorder; Z79.899 Other long term (current) drug therapy; Z82.49 Family history of ischemic heart disease and other diseases of the circulatory system; Z87.891 Personal history of nicotine dependence; Z86.73 Personal history of transient ischemic attack (TIA), and cerebral infarction without residual deficits; Z87.19 Personal history of other diseases of the digestive system
CPT/HCPCS: 93005 ×2; 99285; 36415 ×2; 87086; 84439; 82553 ×2; 82550 ×2; 83735; 84443; 85025; 85027; 87088; 80048; 80053; 81001; 84484 ×2; 87186; 84481; 83036; 80061; 83880; 93017; 71046; 78452; 93010 ×2; G0378 ×4; A9500; J2785; A9270 ×18; J1644 ×3; J0360; J2270 ×3; J3490; J2405 ×2; J0696; Q9969

== ENCOUNTER 2019-06-04 15:57 | Emergency (ER) | payer MEDICAID, MEDICARE ==
--- NOTE | 2019-06-04 16:42 | ER Document Report ---
ED Blood Pressure Problem - General Chief Complaint: High Blood Pressure Stated Complaint: BLOOD PRESSURE CONCERNS Time Seen by Provider: 06/04/19 16:23 Primary Care Provider: NICOLE ARAUJO MD [Primary Care Provider] - Follow up as needed TRAVEL OUTSIDE OF THE [place] IN LAST 30 DAYS: No - HPI Notes: Patient is a 68-year-old female that presents to the emergency department for chief complaint of hypertension. Patient has a history of hypertension. She has a home health aide that comes daily and checked her blood pressure today. Home health called EMS because her blood pressure was in the 200 systolic. Patient was recently changed from Norvasc to verapamil because of increased peripheral edema. She is also taking metoprolol and clonidine which she states she did take today. Patient reports occasionally missing a dose of medication here and there but has taken all of them today, she cannot remember yesterday's medications. She currently denies having any symptoms. Patient did report to EMS some chest pain which she states is chronic. Patient always has an aching in her chest which she states her primary care doctor prescribes her a cream for. Her chest discomfort for EMS felt the same. She denies that chest pain currently. Currently patient is asymptomatic and well-appearing with no complaints. Past Medical History: Diabetes, hypertension Past Surgical History: Reviewed Social History: Denies drug alcohol tobacco use Family History: Reviewed and noncontributory for presenting illness Allergies: Reviewed, see documented allergy list. REVIEW OF SYSTEMS: CONSTITUTIONAL : No fever No chills No diaphoresis No recent illness EENT: No vision changes No congestion No sore throat CARDIOVASCULAR: chest pain No palpitations RESPIRATORY: No shortness of breath No cough No difficulty breathing GASTROINTESTINAL: No abdominal pain No nausea No vomiting No diarrhea GENITOURINARY: No dysuria No hematuria No difficulty urinating MUSCULOSKELETAL: No back pain No leg pain No arm pain SKIN: No rashes No lesions LYMPHATIC: No swollen, enlarged glands. NEUROLOGICAL: No lightheadedness No headache No weakness No paresthesias PSYCHIATRIC: No anxiety No depression PHYSICAL EXAMINATION: Vital signs reviewed, nursing noted reviewed. GENERAL: Well-appearing, well-nourished and in no acute distress. HEAD: Atraumatic, normocephalic. EYES: Eyes appear normal, extraocular movements intact, sclera anicteric, conjunctiva are normal. ENT: nares patent, oropharynx clear without exudates. Moist mucous membranes. NECK: Normal range of motion, supple without lymphadenopathy LUNGS: Breath sounds clear to auscultation bilaterally and equal. No wheezes rales or rhonchi. HEART: Regular rate and rhythm without murmurs ABDOMEN: Soft, nontender, normoactive bowel sounds. No rebound, guarding, or rigidity. No masses appreciated. EXTREMITIES: Nontender, good range of motion, +2 bilateral pitting edema NEUROLOGICAL: No focal neurological deficits. Moves all extremities spontaneously Motor and sensory grossly intact on exam. PSYCH: Normal mood, normal affect. SKIN: Warm, Dry, normal turgor, no rashes or lesions noted on exposed skin - Related Data Allergies/Adverse Reactions: decongestants Allergy (Uncoded 04/07/19 16:30) steroids Allergy (Uncoded 04/07/19 16:30) DECONGESTANTS Adverse Reaction (Uncoded 04/07/19 16:30) INCREASES BP STEROIDS Adverse Reaction (Uncoded 04/07/19 16:30) INDUCES FEVER Past Medical History - Social History Smoking Status: Never Smoker Family History: Reviewed & Not Pertinent, CAD Patient has suicidal ideation: No Patient has homicidal ideation: No - Past Medical History Cardiac Medical History: Reports: Hx Atrial Fibrillation - paroxismal-rate controlled, Hx Congestive Heart Failure, Hx Hypercholesterolemia, Hx Hypertension Denies: Hx Coronary Artery Disease, Hx DVT, Hx Heart Attack, Hx Peripheral Vascular Disease, Hx Pulmonary Embolism Pulmonary Medical History: Reports: Hx Bronchitis Denies: Hx Asthma, Hx COPD, Hx Pneumonia, Hx Respiratory Failure Neurological Medical History: Reports: Hx Cerebrovascular Accident, Hx Seizures - as a child-none since. hasn't been in meds in a long time. 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 Denies: Hx Cirrhosis, Hx Crohn's Disease, Hx Hepatitis, Hx Hiatal Hernia, Hx Ulcer, Hx Ulcerative Colitis Musculoskeletal Medical History: Reports Hx Arthritis - Legs, hips, hands, Denies Hx Fibromyalgia, Denies Hx Gout Skin Medical History: Denies Hx Eczema, Denies Hx Psoriasis Psychiatric Medical History: Reports: Hx Anxiety, Hx Dementia, Hx Depression, Hx Obsessive Compulsive Disorder Infectious Medical History: Denies: Hx Hepatitis Past Surgical History: Reports: Hx Dilation and Curettage - x2, Hx Gynecologic Surgery - D&C x2, Hx Orthopedic Surgery - 2x left foot, Hx Tonsillectomy, Other - Cervical dilatation and uterine curettage x2. Denies: Hx Hysterectomy, Hx Mastectomy, Hx Open Heart Surgery, Hx Pacemaker - Immunizations Hx Diphtheria, Pertussis, Tetanus Vaccination: Yes Physical Exam - Vital signs Vitals: Temp Resp BP Pulse Ox 97.7 F 26 H 184/93 H 100 06/04/19 16:02 06/04/19 16:02 06/04/19 16:02 06/04/19 16:02 Course - Re-evaluation Re-evalutation: 06/04/19 16:49 Vitals reviewed. Nursing notes reviewed. Patient's current blood pressure is 175/83 and she is asymptomatic. She does have a history of hypertension and recently had blood pressure medications changed from Norvasc to verapamil. This may be causing her increase in blood pressure at home. Patient's only complaint was chest pain which she states is chronic and unchanged from baseline. This is a pain that she has discussed with her primary care doctor and has used a cream for. This chest pain is not currently present. She has no acute changes on her EKG to suggest any new acute cardiac abnormalities necessitating further work- up. Patient is well-appearing, alert and in no acute distress. She will continue taking her medications as prescribed and will follow closely with her primary care doctor. Patient will return for new or concerning symptoms. She is stable at discharge. - Vital Signs Vital signs: Temp Pulse Resp BP Pulse Ox 97.7 F 21 H 175/83 H 98 06/04/19 16:02 06/04/19 16:18 06/04/19 16:18 06/04/19 16:18 - EKG Interpretation by Me Additional EKG results interpreted by me: 06/04/19 16:42 Interpreted by myself 1615: Normal sinus rhythm, rate 85, PVC, normal axis, no STEMI Discharge - Discharge Clinical Impression: Hypertension Qualifiers: Hypertension type: unspecified Qualified Code(s): I10 - Essential (primary) hypertension Chest pain Qualifiers: Chest pain type: intercostal pain Qualified Code(s): R07.82 - Intercostal pain Condition: Stable Disposition: HOME, SELF-CARE Instructions: High Blood Pressure ([facility]) Additional Instructions: Please return to the emergency department if you have any worsening, or concern of your symptoms. Please return to the emergency department if you develop chest pain, difficulty breathing, severe abdominal pain, or ongoing vomiting. Please follow-up with your primary care physician in 2-3 days and any other recommended physicians. If prescribed, take all medications as directed. If you have any questions or concerns do not hesitate to return the emergency department for evaluation. Referrals: NICOLE ARAUJO MD [Primary Care Provider] - Follow up as needed
[2019-06-04 18:09] VITALS: BP 183/87
--- NOTE | 2019-06-05 10:11 | EKG REPORT ---
SEVERITY:- BORDERLINE ECG - SINUS RHYTHM VENTRICULAR PREMATURE COMPLEX BORDERLINE T ABNORMALITIES, ANTERIOR LEADS : Confirmed by: Mike Gardiner MD 05-Jun-2019 10:10:35
== END 2019-06-04 18:09 | disposition home or self-care (01) ==
LOC: ER 15:57
DX: I11.0 Hypertensive heart disease with heart failure (principal); R07.82 Intercostal pain; E11.9 Type 2 diabetes mellitus without complications; I48.91 Unspecified atrial fibrillation; E78.00 Pure hypercholesterolemia, unspecified; Z86.73 Personal history of transient ischemic attack (TIA), and cerebral infarction without residual deficits
CPT/HCPCS: 93005; 93010; 99283

== ENCOUNTER 2019-07-30 21:41 | Emergency (ER) | payer MEDICARE ==
[2019-07-30] MEDS ORDERED: ASPIRIN 81 MG TABLET, CHEWABLE PO ONE (21:56)
[2019-07-30] MEDS ORDERED: NITROGLYCERIN 2% OINTMENT 1 GM PACKET TP ONE (21:58)
--- NOTE | 2019-07-30 22:00 | ER Document Report ---
ED General - General Stated Complaint: CHEST PAIN Time Seen by Provider: 07/30/19 21:44 Primary Care Provider: NICOLE ARAUJO MD [Primary Care Provider] - Follow up as needed TRAVEL OUTSIDE OF THE [place] IN LAST 30 DAYS: No - HPI Notes: 68-year-old female history of hypertension presents with chest pain. No known history of cardiac disease, onset this morning poorly described substernal chest pain, nonradiating, lasted less than 30 minutes and spontaneously remitted. Sometime this evening several hours ago developed onset of chest pain again, substernal, pressure aching, nonradiating. No fever, chills or sweats. Brought by EMS, received sublingual nitroglycerin with some substantial improvement. No lower extremity pain or swelling over baseline, no fever, chills or sweats. No cough. Moderate intensity, no worse with exertion. She think she has had a stress test last year. No other modifying factors, no other associated symptoms, no other provocative or palliative factors. Denies any ant icoagulation for her atrial fibrillation. - Related Data Allergies/Adverse Reactions: decongestants Allergy (Uncoded 04/07/19 16:30) steroids Allergy (Uncoded 04/07/19 16:30) DECONGESTANTS Adverse Reaction (Uncoded 04/07/19 16:30) INCREASES BP STEROIDS Adverse Reaction (Uncoded 04/07/19 16:30) INDUCES FEVER Past Medical History - Social History Smoking Status: Unknown if Ever Smoked Family History: Reviewed & Not Pertinent, CAD - Past Medical History Cardiac Medical History: Reports: Hx Atrial Fibrillation - paroxismal-rate controlled, Hx Congestive Heart Failure, Hx Hypercholesterolemia, Hx Hypertension Denies: Hx Coronary Artery Disease, Hx DVT, Hx Heart Attack, Hx Peripheral Vascular Disease, Hx Pulmonary Embolism Pulmonary Medical History: Reports: Hx Bronchitis Denies: Hx Asthma, Hx COPD, Hx Pneumonia, Hx Respiratory Failure Neurological Medical History: Reports: Hx Cerebrovascular Accident, Hx Seizures - as a child-none since. hasn't been in meds in a long time. 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 Denies: Hx Cirrhosis, Hx Crohn's Disease, Hx Hepatitis, Hx Hiatal Hernia, Hx Ulcer, Hx Ulcerative Colitis Musculoskeletal Medical History: Reports Hx Arthritis - Legs, hips, hands, Denies Hx Fibromyalgia, Denies Hx Gout Skin Medical History: Denies Hx Eczema, Denies Hx Psoriasis Psychiatric Medical History: Reports: Hx Anxiety, Hx Dementia, Hx Depression, Hx Obsessive Compulsive Disorder Infectious Medical History: Denies: Hx Hepatitis Past Surgical History: Reports: Hx Dilation and Curettage - x2, Hx Gynecologic Surgery - D&C x2, Hx Orthopedic Surgery - 2x left foot, Hx Tonsillectomy, Other - Cervical dilatation and uterine curettage x2. Denies: Hx Hysterectomy, Hx Mastectomy, Hx Open Heart Surgery, Hx Pacemaker - Immunizations Hx Diphtheria, Pertussis, Tetanus Vaccination: Yes Review of Systems - Review of Systems Notes: Review of systems as in the history of present illness, otherwise negative x 10 systems. Physical Exam - Vital signs Vitals: BP Pulse Ox 196/109 H 96 07/30/19 21:51 07/30/19 21:51 - Notes Notes: General: Well developed . HEENT: Normocephalic, atraumatic. Pupils equal round reactive to light. No JVD. Chest: No trauma. Respiratory: Good air exchange, normal excursion. Cardiac: Regular rhythm. No murmurs or gallops. Abdomen: Soft, benign. Nondistended. Nontender. Back: No asymmetry or gross abnormality. Motor: Grossly normal power and tone. Neurologic: Alert, nonfocal. Cranial nerves II-12 are intact. Sensation intact. Vascular: Well perfused. Normal peripheral pulses. Skin: No petechiae or purpura. Bilateral lower extremities show blanching e rythema just above the mid lower extremity. Pedal edema is noted. Course - Re-evaluation Re-evalutation: 07/30/19 22:00 68-year-old female presents with chest pain, increased risk for ACS, consider double chest pain, pneumonia, septal spasm or other etiology. Doubt PE in the absence of any significant tachypnea, hypoxia or pleuritic chest pain. No other risk factors. Plan proceed with basic labs, EKG, biomarkers, transdermal nitrates, aspirin is already given by EMS, reevaluate. 07/31/19 01:27 Labs reviewed, initial CBC chemistries unremarkable except chronic changes. Troponin normal. Patient had substantial improvement but I was unable to completely eliminate her pain. This was after transdermal nitrates and IV morphine. However, pain began to return again and was rated 8 out of 10. Initially consider transition to IV nitroglycerin drip, however, after discussion with the pharmaceutical sales representative from [facility] we have elected to proceed with IV labetalol and transdermal nitrates for now. With regard to the patient's lower extremity erythema, it is unclear whether she be treated for cellulitis or not. The bilateral erythema may be due to chronic venous stasis and vascular insufficiency, however, will err on the side of caution and cover with antibiotics, she is given a dose of Rocephin. Otherwise, she has no fever, no leukocytosis and I think that her current clinical presentation with regard to chest pain is unlikely be related to this. Although patient had negative stress test approximately within the last year, symptoms are certainly concerning and she presents at potential increased risk for unstable angina and acute coronary syndrome. Heart score is 5. I did discuss case with our on-call photograph finisher who felt she was best served by transfer, she has been accepted at [facility], she states she sees her photograph finisher there. 07/31/19 02:34 07/31/19 02:53 Patient evaluated just prior to transfer, remained stable, pain is substantially improved. She had just received labetalol and had her transdermal nitrates increase just prior to leaving. - Vital Signs Vital signs: Temp Pulse Resp BP Pulse Ox 20 203/86 H 94 07/31/19 02:15 07/31/19 02:15 07/31/19 01:59 - Laboratory Result Diagrams: 07/30/19 22:30 07/30/19 22:30 Laboratory results interpreted by me: 07/30/19 07/30/19 22:30 22:30 RBC 3.41 L Hgb 10.8 L Hct 31.5 L RDW 16.2 H Plt Count 138 L Carbon Dioxide 31 H Est GFR (MDRD) Non-Af 57 L Glucose 155 H - EKG Interpretation by Me EKG shows normal: Sinus rhythm, [place], Intervals, QRS Complexes - Nonspecific ST- T changes Critical Care Note - Critical Care Note Total time excluding time spent on procedures (mins): 30 Comments: Includes arranging transfer, evaluation of labs and radiographs and EKGs, managing uncontrolled hypertension and possible unstable angina, does not include time spent perform procedures. Discharge - Discharge Clinical Impression: Unstable angina Condition: Serious Disposition: [facility] Referrals: NICOLE ARAUJO MD [Primary Care Provider] - Follow up as needed
--- NOTE | 2019-07-30 22:32 | RADIOLOGY REPORT (SQ) ---
EXAM DESCRIPTION: XR CHEST 1 VIEW COMPLETED DATE/TME: 07/30/2019 21:57 CLINICAL HISTORY: 68 years, Female, Chest pain COMPARISON: Prior study from 04/19/2019 NUMBER OF VIEWS: One TECHNIQUE: Single frontal view of the chest was obtained LIMITATIONS: None. FINDINGS: Cardiac and mediastinal contours are stable. Bibasilar strandy opacity is noted, likely atelectasis. Lungs are otherwise clear. No large pleural effusion or pneumothorax. IMPRESSION: No acute disease. copyright 2010 [employer]- All Rights Reserved
[2019-07-30] MEDS ORDERED: MORPHINE SULFATE 10 MG/ML INJ IV ONE (22:40)
[2019-07-30 22:50] LABS: ABSOLUTE EOSINOPHILS # (AUTO) 0.1 10^3/uL (0.0-0.6); ABSOLUTE LYMPHOCYTES (AUTO) 1.1 10^3/uL (0.5-4.7); ABSOLUTE MONOCYTES (AUTO) 0.5 10^3/uL (0.1-1.4); ABSOLUTE NEUT (AUTO) 3.8 10^3/uL (1.7-8.2); BASOPHILS % (AUTO) 0.6 % (0-2); EOSINOPHILS % (AUTO) 1.8 % (0-6); HEMATOCRIT 31.5 % (36.0-47.0); HEMOGLOBIN 10.8 g/dL (12.0-15.5); INTERNATIONAL RATION (INR) 1.02; MEAN CORPUSCULAR HEMOGLOBIN 31.8 pg (27.0-33.4); MEAN CORPUSCULAR HGB CONC 34.4 g/dL (32.0-36.0); MEAN CORPUSCULAR VOLUME 92 fl (80-97); MONOCYTES % (AUTO) 8.3 % (3-13); PLATELET COUNT 138 10^3/uL (150-450); PROTHROMBIN TIME 13.4 SEC (11.4-15.4); RED BLOOD COUNT 3.41 10^6/uL (3.72-5.28); RED CELL DISTRIBUTION WIDTH 16.2 % (11.5-14.0); SEGMENTED NEUTROPHILS % (AUTO) 69.3 % (42-78); TOTAL CELLS COUNTED % (AUTO) 100 %; WHITE BLOOD COUNT 5.6 10^3/uL (4.0-10.5)
[2019-07-30 22:54] LABS: ALBUMIN 4.3 g/dL (3.5-5.0); ALKALINE PHOSPHATASE 94 U/L (38-126); ANION GAP 9 (5-19); ASPARTATE AMINO TRANSFERASE 21 U/L (14-36); BILIRUBIN,DIRECT 0.1 mg/dL (0.0-0.4); BILIRUBIN,TOTAL 0.5 mg/dL (0.2-1.3); BLOOD UREA NITROGEN 19 mg/dL (7-20); CALCIUM 9.2 mg/dL (8.4-10.2); CARBON DIOXIDE 31 mmol/L (22-30); CHLORIDE 99 mmol/L (98-107); GLUCOSE 155 mg/dL (75-110); POTASSIUM 3.8 mmol/L (3.6-5.0); TOTAL PROTEIN 7.2 g/dL (6.3-8.2)
[2019-07-31] MEDS ORDERED: NITROGLYCERIN/D5W 50 MG/250 ML RTUINJ IV PRN (00:36)
[2019-07-31] MEDS ORDERED: CEFTRIAXONE INJ 1000 MG VIAL IV ONE (00:40)
[2019-07-31] MEDS ORDERED: NITROGLYCERIN 2% OINTMENT 1 GM PACKET TP ONE (01:07)
[2019-07-31] MEDS ORDERED: LABETALOL HCL INJ 20 MG/4 ML DISP.SYRIN IV ONE (01:07)
[2019-07-31] MEDS ORDERED: LIDOCAINE 5% (700 MG) TRANSDERMAL ADH..PATCH TP ONE (02:39)
[2019-07-31 02:57] VITALS: BP 193/84
--- NOTE | 2019-07-31 13:10 | EKG REPORT ---
SEVERITY:- BORDERLINE ECG - SINUS RHYTHM LVH BY VOLTAGE : Confirmed by: Gerda Sparks MD 31-Jul-2019 13:09:37
--- NOTE | 2019-07-31 13:10 | EKG REPORT ---
SEVERITY:- BORDERLINE ECG - SINUS RHYTHM LVH BY VOLTAGE : Confirmed by: Gerda Sparks MD 31-Jul-2019 13:09:42
== END 2019-07-31 03:01 | disposition short-term general hospital (02) ==
LOC: ER 21:41
DX: I20.0 Unstable angina (principal); I10 Essential (primary) hypertension; L53.9 Erythematous condition, unspecified; R60.0 Localized edema; Z88.8 Allergy status to other drugs, medicaments and biological substances; Z82.49 Family history of ischemic heart disease and other diseases of the circulatory system
CPT/HCPCS: 93005 ×2; 99291; 96375; 96365; 36415; 87040; 85025; 85610; 80053; 84484; 71045; 93010 ×2; A9270 ×2; J3490; J2270; J0696